=== PATIENT | female | born 1970 | race Two or more races ===

== ENCOUNTER 2017-04-09 10:16 | Day surgery (SDC) | END 2017-04-09 15:00 | disposition home or self-care (01) ==

== ENCOUNTER 2018-07-11 11:07 | Inpatient (IN) | payer OTHER ==
[~2018-07-11] VITALS: Ht 152.4 cm; Wt 79.6 kg
[~2018-07-11 11:07] MED LIST: ALBU8.5H8 INH; LORA10TA3 PO; METF-849 PO; PANT40TA3 PO; SIMV20TA2 PO
[2018-07-11] MEDS ORDERED: morphine 4 MG/ML VIAL IV STA ×2 (11:37→13:43)
[2018-07-11] MEDS ORDERED: SOD CHLORIDE 0.9% 1,000 ML IV STA ×2 (11:37→13:43)
[2018-07-11] MEDS ORDERED: ONDANSETRON 4 MG INJ IV STA ×2 (11:37→13:43)
[2018-07-11] MEDS: ACETAMINOPHEN 500 MG TAB PO STA ×2 (11:47→11:48)
[2018-07-11] MEDS ORDERED: IBUPROFEN 800 MG TAB PO ONE (12:00)
[2018-07-11] MEDS ORDERED: SOD CHLORIDE 0.9% 100 ML ONE (12:43)
[2018-07-11] MEDS ORDERED: IOHEXOL 300MG/ML 150 ML BTL ONE (12:43)
[2018-07-11] MEDS ORDERED: PANT40TA4 PO (13:40)
[2018-07-11] MEDS ORDERED: SIMV20TA PO (13:40)
[2018-07-11] MEDS ORDERED: ALBU90AE INHALATION (13:40)
[2018-07-11] MEDS ORDERED: METF500T24 PO (13:41)
[2018-07-11] MEDS ORDERED: LORA10TA3 PO (13:41)
--- NOTE | 2018-07-11 14:13 | ERD ---
ER Documentation Chief Complaint Chief Complaint C/O ABD. PAIN WITH NAUSEA, NO V/D. HX OF GALLBLADDER SURGERY IN 2018 HPI This is a 48-year-old female presents to the emergency department complaining of severe abdominal pain. The patient indicates the abdominal pain has been intermittent for the past 2 weeks. She states the pain is in the epigastric region and radiates to her back. The pain is worse when she leans forward and better when she lies supine. She states the pain is 10 out of 10 in intensity. She said no fevers or shaking or chills. She felt nauseous but has not experience any emesis. She denies any diarrhea. She has had no recent travel. She has no shortness of breath at rest or exertion. She denies any chest pain. The patient indicates that she had a cholecystectomy in October 2017. ROS All systems reviewed and are negative except as per history of present illness. Medications Home Meds Reported Medications Loratadine* (Loratadine*) 10 Mg Tablet, 10 MG PO DAILY, #30 TAB 07/11/18 Metformin Hcl* (Metformin Hcl*) 500 Mg Tablet, 500 MG PO WITH BREAKFAST, #30 TAB 07/11/18 Albuterol Sulfate (Proair Respiclick) 90 Mcg Aer.pow.ba, 2 PUFFS INHALATION Q6 PRN for SHORTNESS OF BREATH, #1 BOTTLE 07/11/18 Pantoprazole* (Pantoprazole*) 40 Mg Tablet.dr, 40 MG PO AC BREAKFAST, TAB 07/11/18 Simvastatin* (Zocor*) 20 Mg Tablet, 20 MG PO QHS, #30 TAB 07/11/18 Discontinued Reported Medications Metformin* (Glucophage*) 500 Mg Tab, 500 MG PO BID, #30 TAB 04/09/17 Simvastatin (Simvastatin) 20 Mg Tablet, 203 MG PO DAILY, #30 TAB 04/09/17 Albuterol Sulfate* (Proair HFA*) 8.5 Gm Hfa.aer.ad, 2 PUFF INH Q6 for WHEEZING, #1 INHALER 04/09/17 Pantoprazole* (Protonix*) 40 Mg Tablet.dr, 40 MG PO DAILY, TAB 04/09/17 Loratadine* (Loratadine*) 10 Mg Tablet, 10 MG PO DAILY, #30 TAB 04/09/17 Allergies Allergies: Coded Allergies: No Known Allergy (Unverified , 07/11/18) PMhx/Soc History of Surgery: Yes (appy, GALLBLADDER REMOVAL) Anesthesia Reaction: No Hx Neurological Disorder: No Hx Respiratory Disorders: Yes (asthma) Hx Cardiac Disorders: Yes (hypercholesterolemia) Hx Psychiatric Problems: No Hx Miscellaneous Medical Probl: No Hx Alcohol Use: No Hx Substance Use: No Hx Tobacco Use: No Smoking Status: Never smoker Physical Exam Vitals Vital Signs Date Temp Pulse Resp B/P (MAP) Pulse Ox O2 O2 Flow FiO2 Time Delivery Rate 07/11/18 100.7 11:48 07/11/18 79 21 121/79 99 Room Air 11:28 (93) 07/11/18 100.7 93 20 137/80 98 11:11 (99) Physical Exam Constitutional:Well-developed. Well-nourished. Patient appear to be in a significant amount discomfort secondary to pain HEENT:Normocephalic. Atraumatic.Pupils were equal round reactive to light. Moist mucous membranes.No tonsillar exudates. Neck: No nuchal rigidity. No lymphadenopathy. No posterior cervical spine tenderness or step-offs. Respiratory: Not using accessory muscles of respiration.Lungs were clear to auscultation bilaterally. No rhonchi. No rales. No wheezing. Cardiovascular: Regular rate regular rhythm.No murmurs. No rubs were appreciated.S1, S2 normal. Distal pulses are palpable 2+ bilaterally. GI: Abdomen was soft. Tenderness in the epigastric region. Non Distended. No pulsatile abdominal masses or bruits. No rebound. No guarding. Bowel sounds were present and normal. Muscle skeletal: Full range of motion of both the upper and lower extremities bilaterally.Normal muscle tone.No assymetrical calf tenderness or swelling. Skin: No petechia, no purpura. No lesions on the palms or the soles of the feet. No maculopapular rash. NEURO: Patient was alert, awake, orientated x3.No facial droop. Gait observed an d normal with no ataxia.Speech had regular rate and rhythm. No focal neurological deficits. Result Diagram: 07/11/18 1139 07/11/18 1139 Results 24 hrs Laboratory Tests Test 07/11/18 11:39 White Blood Count 10.3 10^3/ul Red Blood Count 4.65 10^6/ul Hemoglobin 12.6 g/dl Hematocrit 40.1 % Mean Corpuscular Volume 86.2 fl Mean Corpuscular Hemoglobin 27.1 pg Mean Corpuscular Hemoglobin Concent 31.4 g/dl Red Cell Distribution Width 13.8 % Platelet Count 234 10^3/UL Mean Platelet Volume 10.0 fl Immature Granulocytes % 0.200 % Neutrophils % 63.6 % Lymphocytes % 29.5 % Monocytes % 5.1 % Eosinophils % 1.4 % Basophils % 0.2 % Nucleated Red Blood Cells % 0.0 /100WBC Immature Granulocytes # 0.020 10^3/ul Neutrophils # 6.6 10^3/ul Lymphocytes # 3.1 10^3/ul Monocytes # 0.5 10^3/ul Eosinophils # 0.1 10^3/ul Basophils # 0.0 10^3/ul Nucleated Red Blood Cells # 0.0 10^3/ul Prothrombin Time 13.6 Sec Prothrombin Time Ratio 1.1 INR International Normalized Ratio 1.03 Activated Partial Thromboplast Time 32.9 Sec Urine Color YELLOW Urine Clarity CLEAR Urine pH 9.0 Urine Specific [place] 1.011 Urine Ketones NEGATIVE mg/dL Urine Nitrite NEGATIVE mg/dL Urine Bilirubin NEGATIVE mg/dL Urine Urobilinogen NEGATIVE mg/dL Urine Leukocyte Esterase 2+ [place]/ul Urine Microscopic RBC 1 /HPF Urine Microscopic WBC 13 /HPF Urine Hemoglobin NEGATIVE mg/dL Urine Glucose NEGATIVE mg/dL Urine Total Protein NEGATIVE mg/dl Sodium Level 141 mmol/L Potassium Level 4.3 mmol/L Chloride Level 106 mmol/L Carbon Dioxide Level 26 mmol/L Anion Gap 9 Blood Urea Nitrogen 6 mg/dl Creatinine 0.55 mg/dl Est Glomerular Filtrat Rate mL/min > 60 mL/min Glucose Level 129 mg/dl Calcium Level 9.7 mg/dl Total Bilirubin 0.4 mg/dl Direct Bilirubin 0.00 mg/dl Indirect Bilirubin 0.4 mg/dl Aspartate Amino Transf (AST/SGOT) 42 IU/L Alanine Aminotransferase (ALT/SGPT) 32 IU/L Alkaline Phosphatase 108 IU/L Troponin I < 0.012 ng/ml Total Protein 7.9 g/dl Albumin 4.3 g/dl Globulin 3.60 g/dl Albumin/Globulin Ratio 1.19 Triglycerides Level 186 mg/dl Cholesterol Level 143 mg/dl LDL Cholesterol, Calculated 65 mg/dl HDL Cholesterol 41 mg/dl Cholesterol/HDL Ratio 3.4 RATIO Amylase Level 112 U/L Lipase 288 U/L Current Medications Medications Dose Sig/Gus Start Time Status Last (Trade) Ordered Route PRN Stop Time Admin Dose Reason Admin Sodium 1,000 ml @ Q1H STAT 07/11/18 DC 07/11/18 Chloride 1,000 mls/hr IV 11:37 11:46 07/11/18 12:36 Morphine 4 mg ONCE STAT 07/11/18 DC 07/11/18 Sulfate IV 11:37 11:46 (morphine) 07/11/18 11:40 Ondansetron 4 mg ONCE STAT 07/11/18 DC 07/11/18 HCl (Zofran IV 11:37 11:46 Inj) 07/11/18 11:40 1,000 mg ONCE STAT 07/11/18 DC 07/11/18 Acetaminophen PO 11:37 11:48 (Tylenol 07/11/18 11:40 Tab) Ibuprofen 800 mg ONCE ONCE 07/11/18 DC 07/11/18 (Motrin) PO 12:00 12:06 07/11/18 12:07 IV Flush 10 ml STK-MED 07/11/18 DC 07/11/18 (NS 10 ml) ONCE .ROUTE 12:43 12:59 07/11/18 12:44 Sodium 100 ml @ ud STK-MED 07/11/18 DC 07/11/18 Chloride ONCE .ROUTE 12:43 13:00 07/11/18 12:44 Iohexol 150 ml STK-MED 07/11/18 DC 07/11/18 (Omnipaque ONCE .ROUTE 12:43 13:00 300mg/ ml) 07/11/18 12:44 Sodium 1,000 ml @ Q1H STAT 07/11/18 Chloride 1,000 mls/hr IV 13:43 07/11/18 14:42 Morphine 4 mg ONCE STAT 07/11/18 DC Sulfate IV 13:43 (morphine) 07/11/18 13:54 Ondansetron 4 mg ONCE STAT 07/11/18 DC HCl (Zofran IV 13:43 Inj) 07/11/18 13:54 Procedures/MDM This patient presented to the emergency department with abdominal pain and was seen and evaluated by myself. My differential diagnosis included but was not limited to abdominal aortic aneurysm, appendicitis, pancreatitis, perforated peptic ulcer, perforated viscus, Boerhaaves syndrome or visceral pain such as diverticulitis, DKA, esophagitis, hepatitis or bowel obstruction. The patient was placed on a telemetry monitor, continuous pulse oximetry, and IV access was established by nursing staff. I obtained a 12-lead EKG tracing to rule out for atypical myocardial infarction. 12 Lead EKG tracing ordered and reviewed by myself showed: Normal sinus rhythm of 75 bpm and no arrhythmia. NJ interval normal. QRS duration normal. No ST segment elevation No ST segment depression. No changes consistent with acute ischemia. The patient was in a significant amount discomfort was given intravenous Dilaudid and Zofran. CT scan of the abdomen was ordered and reviewed by myself and the radiologist. It indicated the followin. Acute pancreatitis with jadon pancreatic inflammation and fluid most notably at the pancreatic tail. Recommend clinical and laboratory correlation. 2. Multiple small fluid collections measuring up to 3 cm near the pancreatic tail, in the lesser sac and near the posterior wall of the stomach with adjacent reactive thickening of the gastric wall. These likely represent pseudocysts. 3. Hepatomegaly with steatosis. 4. Status post cholecystectomy. The patient's amylase and lipase were within normal limits but her clinical presentation was suggestive of acute pancreatitis. Therefore she will be admitted. She was instructed to remain n.p.o. She received further IV fluids and analgesic medication. The patient is capitated to admission hospital I did feel she was stable for transfer. I am currently waiting to speak to the admitting physician. Departure Diagnosis: Primary Impression: Pancreatitis Chronicity: acute Pancreatitis type: unspecified pancreatitis type Acute pancreatitis complication: no infection or necrosis Qualified Codes: K85.90 - Acute pancreatitis without necrosis or infection, unspecified Condition: GET De Jesus MD July 11, 2018 14:13
[2018-07-11] MEDS ORDERED: ONDANSETRON 4 MG INJ IV PRN (15:30)
[2018-07-11] MEDS ORDERED: ACETAMINOPHEN 325 MG TAB PO PRN (15:30)
[2018-07-11 16:00] VITALS: BP 103/56; PULSE 64; RESP 18
--- NOTE | 2018-07-11 16:17 | HP ---
Date/Time of Note Date/Time of Note DATE: 07/11/18 TIME: 16:17 Assessment/Plan VTE Prophylaxis Pharmacological prophylaxis: NA/contraindicated Pharm contraindication: surgical contra Lines/Catheters IV [facility]from [facility]): [place] Assessment/Plan Hospital Course 48-year-old female with prior history of pancreatitis status post gallbladder resection in October 2017 who presented to the emergency room with chief comp laint of abdominal pain with CT evidence of pancreatitis and possible underlying pancreatic pseudocyst, who will be admitted to inpatient setting for further treatment and evaluation. 1. Acute pancreatitis. -Etiology unclear. -Status post cholecystectomy. -Fasting lipid panel negative for any significant hypertriglyceridemia. -The patient is a teetotaler. -Obtain gastroenterology consult. -Keep n.p.o. -Continue aggressive IV fluid hydration. -Continue pain control. 2. Multiple fluid collections in the pancreatic tail. -Possible pancreatic pseudocyst. -Gastroenterology consult has been obtained. 3. Dyslipidemia. -Hold statins at this time. -Fasting lipid panel satisfactory. 4. Asthma. -No evidence of any acute exacerbation. -Continue PRN DORI. 5. Obesity. -BMI more than 34 kg/m. -Advised weight reduction. Plan: The patient will be admitted to inpatient medical surgical floor. The patient will be kept n.p.o. The patient will be started on DVT prophylaxis. The patient will remain a full code. Activities will be as tolerated. The rest of the patient's management will be based on the clinical course, inputs from consultants, and the results of diagnostic studies. Based on the patient's clinical presentation, she most probably requires at least 2 midnights' stay for further management and evaluation of her clinical presentation. The patient was seen in collaboration with Dr. Tillman. Result Diagram: 07/11/18 1139 07/11/18 1139 Results 24hrs Laboratory Tests Test 07/11/18 11:39 White Blood Count 10.3 Red Blood Count 4.65 Hemoglobin 12.6 Hematocrit 40.1 Mean Corpuscular Volume 86.2 Mean Corpuscular Hemoglobin 27.1 L Mean Corpuscular Hemoglobin Concent 31.4 L Red Cell Distribution Width 13.8 Platelet Count 234 Mean Platelet Volume 10.0 Immature Granulocytes % 0.200 Neutrophils % 63.6 Lymphocytes % 29.5 Monocytes % 5.1 Eosinophils % 1.4 Basophils % 0.2 Nucleated Red Blood Cells % 0.0 Immature Granulocytes # 0.020 Neutrophils # 6.6 Lymphocytes # 3.1 H Monocytes # 0.5 Eosinophils # 0.1 Basophils # 0.0 Nucleated Red Blood Cells # 0.0 Prothrombin Time 13.6 Prothrombin Time Ratio 1.1 INR International Normalized Ratio 1.03 Activated Partial Thromboplast Time 32.9 Urine Color YELLOW Urine Clarity CLEAR Urine pH 9.0 Urine Specific [place] 1.011 Urine Ketones NEGATIVE Urine Nitrite NEGATIVE Urine Bilirubin NEGATIVE Urine Urobilinogen NEGATIVE Urine Leukocyte Esterase 2+ H Urine Microscopic RBC 1 Urine Microscopic WBC 13 H Urine Hemoglobin NEGATIVE Urine Glucose NEGATIVE Urine Total Protein NEGATIVE Sodium Level 141 Potassium Level 4.3 Chloride Level 106 Carbon Dioxide Level 26 Anion Gap 9 Blood Urea Nitrogen 6 L Creatinine 0.55 Est Glomerular Filtrat Rate mL/min > 60 Glucose Level 129 Calcium Level 9.7 Total Bilirubin 0.4 Direct Bilirubin 0.00 Indirect Bilirubin 0.4 Aspartate Amino Transf (AST/SGOT) 42 Alanine Aminotransferase (ALT/SGPT) 32 Alkaline Phosphatase 108 Troponin I < 0.012 Total Protein 7.9 Albumin 4.3 Globulin 3.60 H Albumin/Globulin Ratio 1.19 Triglycerides Level 186 H Cholesterol Level 143 LDL Cholesterol, Calculated 65 HDL Cholesterol 41 Cholesterol/HDL Ratio 3.4 Amylase Level 112 Lipase 288 HPI/ROS Admit Date/Time Admit Date/Time Hx of Present Illness Reason for admission: Abdominal pain. Acute pancreatitis is. Consultants 1. Adrien Hendrickson MD, Gastroenterology This is a 48-year-old female with past medical history of asthma, hyperlipidemia, pancreatitis, and obesity. Patient had a cholecystectomy done in October 2017. Since then, the patient has been having nonspecific abdominal pain. However, over the past 2 weeks she has been having significant abdominal pain that was described as intermittent sharp pain; epigastric and left upper quadrant. The patient denied any emesis although she complained of nausea. The patient denied any bowel irregularities. The patient follows up with Dr. Hendrickson as outpatient and was in the process of seeing because of her history of recurrent pancreatitis. Patient was complaining of chills. The patient denied any recent travels. In the emergency room, the patient was noticed to be febrile with a temperature of 100.7 F. Her pancreatic enzymes were within normal limits. Her LFTs were within normal limits. She underwent a CT scan of the abdomen and pelvis that was showing acute pancreatitis with peripancreatic inflammation and fluid notably at the pancreatic tail with multiple small fluid collections measuring up to 3 cm near the pancreatic tail, likely representing pseudocyst. The patient was treated with IV analgesics along with IV fluids and antiemetics in the emergency room. ROS Constitutional: chills, nausea, poor po Eyes: no complaints ENT: no complaints Respiratory: no complaints Cardiovascular: no complaints Gastrointestinal: pain, nausea Genitourinary: no complaints Musculoskeletal: no complaints Skin: no complaints Neurologic: no complaints Endocrine: no complaints Lymphatic: no complaints Psychological: no complaints Immunologic: no complaints PMH/Family/Social Past Medical History 1. Asthma. 2. Hyperlipidemia. 3. Pancreatitis. 4. Obesity. 5. Migraine. Medications Current Medications Ondansetron HCl (Zofran Inj) 4 mg BRIDGE ORDER PRN IV NAUSEA/VOMITING; Start 07/11/18 at 15:30; Stop 07/12/18 at 15:29 Acetaminophen (Tylenol Tab) 650 mg ER BRIDGE PRN PO .MILD PAIN 1-3 OR TEMP; Start 07/11/18 at 15:30; Stop 07/12/18 at 15:29 Coded Allergies: No Known Allergy (Unverified , 07/11/18) Past Surgical History Past Surgical Hx: cholecystectomy Social History Lives at home with family. Alcohol Use: none Smoking Status: Never smoker Drug Use: none Exam/Review of Systems Vital Signs Vitals Vital Signs Date Temp Pulse Resp B/P (MAP) Pulse Ox O2 O2 Flow FiO2 Time Delivery Rate 07/11/18 66 22 100/61 99 Room Air 15:48 (74) 07/11/18 100.7 11:48 Exam Exam General: Obese, 48 year-old female lying in bed in no apparent distress. HEENT: Normocephalic, atraumatic. Eyes: Anicteric sclerae, conjunctivae clear. ENT: Nasal septum midline, oral mucosa is dry and. Neck supple, no JVD noticed. Respiratory: Bilaterally clear breath sounds. No use of accessory muscles of respiration. No adventitious breath sounds. Cardiovascular: S1, S2 heard. Regular rate and rhythm. Abdomen: Soft and nondistended. Epigastric and left upper quadrant tenderness. Genitourinary: Deferred. Extremities: No cyanosis, no clubbing, no edema. Peripheral pulses palpable. Neurologic: Cranial nerves II through XII grossly intact. The patient is awake, alert, and oriented. Skin: Normal skin turgor. No skin rashes. Additional Comments CT Scan of the Abdomen & Pelvis IMPRESSION: 1. Acute pancreatitis with jadon pancreatic inflammation and fluid most notably at the pancreatic tail. Recommend clinical and laboratory correlation. 2. Multiple small fluid collections measuring up to 3 cm near the pancreatic tail, in the lesser sac and near the posterior wall of the stomach with adjacent reactive thickening of the gastric wall. These likely represent pseudocysts. 3. Hepatomegaly with steatosis. 4. Status post cholecystectomy. JAYSON ENGEL NP July 11, 2018 16:17
[2018-07-11] MEDS ORDERED: ALBU18HF INHALATION (16:32)
[2018-07-11 16:56] VITALS: Ht 152.4 cm; Wt 79.6 kg
[2018-07-11] MEDS ORDERED: NACL 0.9% 3 ML SYG IV SCH (17:00)
[2018-07-11] MEDS: SOD CHLORIDE 0.9% 1,000 ML IV SCH (17:39)
[2018-07-11] MEDS: morphine 2 MG INJ IV PRN ×2 (17:40→22:16)
[2018-07-11] MEDS: ONDANSETRON 4 MG INJ IV PRN (17:40)
[2018-07-11 19:52] VITALS: BP 86/48; PULSE 60; RESP 18
[2018-07-11 20:20] VITALS: BP 104/55; PULSE 61; RESP 18
[2018-07-12] MEDS: SOD CHLORIDE 0.9% 1,000 ML IV SCH ×4 (01:09→18:12)
[2018-07-12 01:41] VITALS: BP 93/65; PULSE 63; RESP 18
[2018-07-12] MEDS: morphine 2 MG INJ IV PRN ×5 (05:26→22:56)
[2018-07-12 08:39] VITALS: BP 101/63; PULSE 70; RESP 17
--- NOTE | 2018-07-12 11:37 | CONS ---
DATE OF ADMISSION: 07/11/2018 DATE OF CONSULTATION: 07/12/2018 CHIEF COMPLAINT: Abdominal pain. HISTORY OF PRESENT ILLNESS: The patient is a 48-year-old Hindu female, is admitted to the hospital because of abdominal pain. She says for the past few days, abdominal pain has been getting worse. S he is known to have a chronic pancreatitis. 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 She h ad a cholecystectomy in the past. She also had an ERCP. The details of the ERCP reports are not vivienne ilable at this moment. She has history of diabetes. She has been nauseated. No vomiting, no GI ble eding, no fever, no diarrhea, no weight loss. SOCIAL HISTORY: She does not smoke or drink. REVIEW OF SYSTEM: Positive for diabetes. MEDICATIONS PRIOR TO THE ADMISSION INCLUDE: 1. Loratadine. 2. Ventolin. 3. Zocor. 4. Pantoprazole. PHYSICAL EXAMINATION: GENERAL: The patient is a 48-year-old Hindu female who at this time is alert. She is afebrile. Sh e is mildly obese. VITAL SIGNS: Temperature 98.3, blood pressure 101/63. CARDIOVASCULAR: Normal heart sounds. RESPIRATORY: Normal breath sounds. ABDOMEN: Showed a soft abdomen with no palpable masses, no tenderness, no distention. LABORATORY WORKUP: WBC count is 10,300, hemoglobin 12.6. AST 42, ALT 32, alkaline phosphatase is 10 8, triglycerides 186, amylase 112, lipase 288, CA 19-9 is mildly elevated at 40.6. CLINICAL IMPRESSION: The patient presenting with history of chronic pancreatitis with pseudocyst for mation of the tail of the pancreas, etiology at this time is not very clear. History of diabetes. I doubt if the hypertriglyceridemia is causing the pancreatitis. PLAN: At this time, recommend endoscopic ultrasound. She is already planned to see a gastroenterolo gist outside the hospital and recommend MRCP, but patient is refusing. Once again, COLLECTION AGENT , thank you for this consultation. Dictated By: MARGA BOWSER/NTS Conf#: [id number] DID#: [id number] CC: MICHELLE CONLEY MD;*EndCC*
[2018-07-12] MEDS: ACETAMINOPHEN 500 MG TAB PO PRN (12:11)
[2018-07-12] MEDS: CREON (24K-76K-120K) 1 CAP PO SCH ×2 (13:11→17:14)
--- NOTE | 2018-07-12 14:29 | RADRPT ---
Vent Rate: 75 bpm RR Interval: 0 msec TN Interval: 148 msec QRS Duration: 76 msec QT Interval: 398 msec QTC Interval: 444 msec P-R-T [place]: 51 - 0 - 18 degrees Normal sinus rhythm Normal ECG Electronically Signed By: [facility]
[2018-07-12 14:38] VITALS: BP 116/60; PULSE 69; RESP 17
--- NOTE | 2018-07-12 16:54 | PN ---
Date/Time of Note Date/Time of Note DATE: 07/12/18 TIME: 16:47 Assessment/Plan VTE Prophylaxis Risk score (from Ns)>0 risk: 1 SCD applied (from Ns): No SCD contraindicated: other Pharmacological prophylaxis: NA/contraindicated Pharm contraindication: low risk/ambulating Lines/Catheters [facility] Peripheral IV Assessment/Plan Hospital Course SUBJECTIVE: The patient was started on a full liquid diet. Continues to have abdominal pain, although less. Patient refused ERCP as per gastroenterology. Patient was very tearful and verbalized that "sometimes I want to cut myself on my abdomen because of pain. I have thought about suicide." OBJECTIVE: Physical Exam General: Obese, 48 year-old female lying in bed in no apparent distress. HEENT: Normocephalic, atraumatic. Eyes: Anicteric sclerae, conjunctivae clear. ENT: Nasal septum midline, oral mucosa is dry and. Neck supple, no JVD noticed. Respiratory: Bilaterally clear breath sounds. No use of accessory muscles of respiration. No adventitious breath sounds. Cardiovascular: S1, S2 heard. Regular rate and rhythm. Abdomen: Soft and nondistended. Epigastric and left upper quadrant tenderness. Genitourinary: Deferred. Extremities: No cyanosis, no clubbing, no edema. Peripheral pulses palpable. Neurologic: Cranial nerves II through XII grossly intact. The patient is awake, alert, and oriented. Skin: Normal skin turgor. No skin rashes. Labs & Vitals per chart ASSESSMENT & PLAN 48-year-old female with prior history of pancreatitis status post gallbladder resection in October 2017 who presented to the emergency room with chief com plaint of abdominal pain with CT evidence of pancreatitis and possible underlying pancreatic pseudocyst, who was admitted to inpatient setting for further treatment and evaluation. 1. Acute pancreatitis. -Etiology unclear. -Status post cholecystectomy. -Fasting lipid panel negative for any significant hypertriglyceridemia. -The patient is a teetotaler. -Gastroenterology following. -Continue aggressive IV fluid hydration. -Continue pain control. -Patient was started on Creon. -Patient has outpatient appointment for endoscopic ultrasound. 2. Multiple fluid collections in the pancreatic tail. -Possible pancreatic pseudocyst. -Gastroenterology consult has been obtained. 3. Dyslipidemia. -Hold statins at this time. -Fasting lipid panel satisfactory. 4. Asthma. -No evidence of any acute exacerbation. -Continue PRN DORI. 5. Obesity. -BMI more than 34 kg/m. -Advised weight reduction. 6. Diabetes mellitus. -Hemoglobin A1c of 7.2. -New onset versus newly diagnosed. -Monitor glycemic trends. 7. Fluids, electrolytes, and nutrition. -Full liquid diet. -Continue IV fluids. 8. DVT prophylaxis. -Bilateral SCDs. 9. Plan. -Continue pain control. -Continue IV hydration. -Await clinical improvement before discharging the patient home. -Obtain psych consult because of suicidal ideation. The patient was seen in collaboration with Dr. Tillman. Result Diagram: 07/11/18 1139 07/11/18 1139 Exam/Review of Systems Exam Vitals Vital Signs Date Temp Pulse Resp B/P (MAP) Pulse Ox O2 O2 Flow FiO2 Time Delivery Rate 07/12/18 98.3 69 17 116/60 95 14:38 (78) 07/11/18 Room Air 16:00 Intake and Output 07/11/18 07/11/18 07/12/18 1515:00 23:00 07:00 IntakeIntake Total 1500 ml BalanceBalance 1500 ml Medications Medication Current Medications Sodium Chloride 1,000 ml @ 125 mls/hr Q8H IV Last administered on 07/12/18at 09:31; Admin Dose 125 MLS/HR; Start 07/11/18 at 16:44 IV Flush (NS 3 ml) 3 ml PER PROTOCOL IV ; Start 07/11/18 at 17:00 Ondansetron HCl (Zofran Inj) 4 mg Q6H PRN IV NAUSEA/VOMITING Last administered on 07/11/18at 17:40; Admin Dose 4 MG; Start 07/11/18 at 17:00 Morphine Sulfate (morphine) 2 mg Q4H PRN IV .SEVERE PAIN 7-10 Last administered on 07/12/18at 14:09; Admin Dose 2 MG; Start 07/11/18 at 17:00 Albuterol (Proventil 0.083% (Neb)) 2.5 mg Q6H RESP THERAPY PRN HHN SHORTNESS OF BREATH; Start 07/11/18 at 17:00 Amylase/Lipase/ Protease (Creon ([id number])) 2 cap WITH MEALS PO Last a dministered on 07/12/18at 13:11; Admin Dose 2 CAP; Start 07/12/18 at 12:00 Acetaminophen (Tylenol Tab) 500 mg Q6H PRN PO MILD PAIN(1-3)OR ELEVATED TEMP Last administered on 07/12/18at 12:11; Admin Dose 500 MG; Start 07/12/18 at 12:00 JAYSON ENGEL NP July 12, 2018 16:54
[2018-07-12 20:00] VITALS: BP 125/73; PULSE 68; RESP 16
[2018-07-12] MEDS ORDERED: ALBUTEROL HFA 8 GM INHALER INH PRN (21:00)
[2018-07-12] MEDS: ATORVASTATIN 10 MG TAB PO SCH (21:04)
[2018-07-12] MEDS: ALBUTEROL 0.083% (NEB) 2.5 MG/3 ML AMP HHN PRN (21:54)
[2018-07-13 01:39] VITALS: BP 113/69; PULSE 80; RESP 16
[2018-07-13] MEDS: SOD CHLORIDE 0.9% 1,000 ML IV SCH ×3 (02:01→20:16)
[2018-07-13] MEDS: morphine 2 MG INJ IV PRN ×4 (03:14→20:19)
[2018-07-13 03:55] VITALS: BP 100/58; PULSE 66; RESP 16
[2018-07-13] MEDS: ALBUTEROL 0.083% (NEB) 2.5 MG/3 ML AMP HHN PRN (04:18)
[2018-07-13] MEDS: PANTOPRAZOLE (EC) 40 MG TAB PO SCH (05:37)
[2018-07-13] MEDS: CREON (24K-76K-120K) 1 CAP PO SCH ×3 (07:55→17:30)
[2018-07-13 08:04] VITALS: BP 112/61; PULSE 68; RESP 16
--- NOTE | 2018-07-13 09:42 | PSY ---
Date/Time of Note Date/Time of Note DATE: 07/13/18 TIME: 09:41 Psychiatric Subjective Eval Consent Pt consented to telemedicine: No Subjective Evaluation Patient location: inpatient Chief Complaint: C/O ABD. PAIN WITH NAUSEA, NO V/D. HX OF GALLBLADDER SURGERY IN 2018 History of present illness The patient is a 48-year-old female with past medical history of asthma, hyperlipidemia, pancreatitis, and obesity. [id number] evaluation, patient states she does not need a psychiatric consult edition, she denies feeling hopeless she denies feeling hopeless she denies suicidal ideation. Patient states she has a chronic pain and that her doctors have not been able to diagnose and find the cause of the pain. However she states she is hopeful and contracted for safety Past psychiatric history Denies Hospitalization: other Medical history Problems Medical Problems: (1) Pancreatitis Status: Acute Allergies: Coded Allergies: No Known Allergy (Unverified , 07/11/18) Substance Abuse Substance abuse history: No Prior substance abuse treatmen: No Social History Marital status: other DPA/Conservatorship: No Psychiatric Objective Eval Review of Systems: Review of Systems: Not Applicable Mental Status Examination: Eye Contact: Good Behavior: Cooperative Speech: Clear AFFECT: Appropriate Mood: Appropriate/Full Though Process: Linear Orientation: x4 Cognition: Alert Insight: Intact Laboratory Results Laboratory Tests Test 07/11/18 11:39 07/13/18 05:17 White Blood Count 10.3 10^3/ul 4.7 10^3/ul Red Blood Count 4.65 10^6/ul 3.81 10^6/ul Hemoglobin 12.6 g/dl 10.4 g/dl Hematocrit 40.1 % 33.1 % Mean Corpuscular Volume 86.2 fl 86.9 fl Mean Corpuscular Hemoglobin 27.1 pg 27.3 pg Mean Corpuscular Hemoglobin Concent 31.4 g/dl 31.4 g/dl Red Cell Distribution Width 13.8 % 13.9 % Platelet Count 234 10^3/UL 152 10^3/UL Mean Platelet Volume 10.0 fl 10.3 fl Immature Granulocytes % 0.200 % 0.200 % Neutrophils % 63.6 % Lymphocytes % 29.5 % Monocytes % 5.1 % Eosinophils % 1.4 % Basophils % 0.2 % Nucleated Red Blood Cells % 0.0 /100WBC 0.0 /100WBC Immature Granulocytes # 0.020 10^3/ul 0.010 10^3/ul Neutrophils # 6.6 10^3/ul Lymphocytes # 3.1 10^3/ul Monocytes # 0.5 10^3/ul Eosinophils # 0.1 10^3/ul Basophils # 0.0 10^3/ul Nucleated Red Blood Cells # 0.0 10^3/ul Prothrombin Time 13.6 Sec Prothrombin Time Ratio 1.1 INR International Normalized Ratio 1.03 Activated Partial Thromboplast Time 32.9 Sec Urine Color YELLOW Urine Clarity CLEAR Urine pH 9.0 Urine Specific [place] 1.011 Urine Ketones NEGATIVE mg/dL Urine Nitrite NEGATIVE mg/dL Urine Bilirubin NEGATIVE mg/dL Urine Urobilinogen NEGATIVE mg/dL Urine Leukocyte Esterase 2+ [place]/ul Urine Microscopic RBC 1 /HPF Urine Microscopic WBC 13 /HPF Urine Hemoglobin NEGATIVE mg/dL Urine Glucose NEGATIVE mg/dL Urine Total Protein NEGATIVE mg/dl Sodium Level 141 mmol/L 139 mmol/L Potassium Level 4.3 mmol/L 3.6 mmol/L Chloride Level 106 mmol/L 105 mmol/L Carbon Dioxide Level 26 mmol/L 27 mmol/L Anion Gap 9 7 Blood Urea Nitrogen 6 mg/dl 4 mg/dl Creatinine 0.55 mg/dl 0.50 mg/dl Est Glomerular Filtrat Rate mL/min > 60 mL/min > 60 mL/min Glucose Level 129 mg/dl 127 mg/dl Hemoglobin A1c 7.2 % Calcium Level 9.7 mg/dl 8.9 mg/dl Total Bilirubin 0.4 mg/dl 0.3 mg/dl Direct Bilirubin 0.00 mg/dl 0.00 mg/dl Indirect Bilirubin 0.4 mg/dl 0.3 mg/dl Aspartate Amino Transf (AST/SGOT) 42 IU/L 31 IU/L Alanine Aminotransferase (ALT/SGPT) 32 IU/L 34 IU/L Alkaline Phosphatase 108 IU/L 79 IU/L Troponin I < 0.012 ng/ml Total Protein 7.9 g/dl 6.5 g/dl Albumin 4.3 g/dl 3.4 g/dl Globulin 3.60 g/dl 3.10 g/dl Albumin/Globulin Ratio 1.19 1.09 Triglycerides Level 186 mg/dl Cholesterol Level 143 mg/dl LDL Cholesterol, Calculated 65 mg/dl HDL Cholesterol 41 mg/dl Cholesterol/HDL Ratio 3.4 RATIO Amylase Level 112 U/L 108 U/L Lipase 288 U/L 145 U/L CA 19-9 Antigen 40.6 U/ml Procalcitonin 0.90 ng/mL Phosphorus Level 4.5 mg/dl Magnesium Level 2.0 mg/dl Assessment and Plan Recommendation/Plan Medication Management No medication required Multiple antipsychotics: No Discharge Disposition: Other Legal Status: Voluntary (Does not meet criteria for 5150 hold) ALICIA VARELA NP July 13, 2018 09:42
--- NOTE | 2018-07-13 10:57 | CONS ---
DATE OF ADMISSION: 07/11/2018 DATE OF CONSULTATION: 07/13/2018 HISTORY OF PRESENT ILLNESS: A 48-year-old female who presented with acute pancreatitis. This is the second episode. CAT scan showed the pancreatitis and 3 cm pseudocyst in the tail of the pancreas. No etiology is determined so far. OBJECTIVE: Pain is much better. PHYSICAL EXAMINATION GENERAL: Patient is on a full liquid diet. ABDOMEN: Benign. LUNGS: Clear. EXTREMITIES: No edema. CENTRAL NERVOUS SYSTEM: Grossly within normal limits. IMPRESSION: Acute recurrent pancreatitis with pseudocyst formation. PLAN: 1. To get KUB to look for the calcification in the pancreas. 2. MRCP to look for the pancreatic divisum, but patient has declined it. 3. Continue present care. Dictated By: ESTEPHANIA RODRIGUEZ MD PJ/NTS Conf#: [id number] DID#: [id number] CC: MICHELLE CONLEY MD;*EndCC*
[2018-07-13] MEDS: ACETAMINOPHEN 500 MG TAB PO PRN (11:57)
[2018-07-13 14:49] VITALS: BP 103/52; PULSE 62; RESP 16
--- NOTE | 2018-07-13 16:04 | PN ---
Date/Time of Note Date/Time of Note DATE: 07/13/18 TIME: 15:58 Assessment/Plan VTE Prophylaxis Risk score (from Ns)>0 risk: 2 SCD applied (from Ns): No SCD contraindicated: other Pharmacological prophylaxis: NA/contraindicated Pharm contraindication: low risk/ambulating Lines/Catheters [facility]): Peripheral IV Assessment/Plan Hospital Course SUBJECTIVE: The patient was started on a full liquid diet. Abdominal pain better. Complains of a sore throat and pain in the neck. OBJECTIVE: Physical Exam General: Obese, 48 year-old female lying in bed in no apparent distress. HEENT: Normocephalic, atraumatic. Eyes: Anicteric sclerae, conjunctivae clear. ENT: Nasal septum midline, oral mucosa is dry and. Neck supple, no JVD noticed. Cervical lymphadenopathy. Respiratory: Bilaterally clear breath sounds. No use of accessory muscles of respiration. No adventitious breath sounds. Cardiovascular: S1, S2 heard. Regular rate and rhythm. Abdomen: Soft and nondistended. Epigastric and left upper quadrant tenderness. Genitourinary: Deferred. Extremities: No cyanosis, no clubbing, no edema. Peripheral pulses palpable. Neurologic: Cranial nerves II through XII grossly intact. The patient is awake, alert, and oriented. Skin: Normal skin turgor. No skin rashes. Labs & Vitals per chart ASSESSMENT & PLAN 48-year-old female with prior history of pancreatitis status post gallbladder resection in October 2017 who presented to the emergency room with chief complaint of abdominal pain with CT evidence of pancreatitis and possible underlying pancreatic pseudocyst, who was admitted to inpatient setting for further treatment and evaluation. 1. Acute pancreatitis. -Etiology unclear. -Status post cholecystectomy. -Fasting lipid panel negative for any significant hypertriglyceridemia. -The patient is a teetotaler. -Gastroenterology following. -Continue aggressive IV fluid hydration. -Continue pain control. -Patient was started on Creon. -Patient has outpatient appointment for endoscopic ultrasound. -Started on full liquids on 07/12/2018. 2. Multiple fluid collections in the pancreatic tail. -Possible pancreatic pseudocyst. -Gastroenterology consult has been obtained. 3. Dyslipidemia. -Hold statins at this time. -Fasting lipid panel satisfactory. 4. Asthma. -No evidence of any acute exacerbation. -Continue PRN DORI. 5. Obesity. -BMI more than 34 kg/m. -Advised weight reduction. 6. Diabetes mellitus. -Hemoglobin A1c of 7.2. -Monitor glycemic trends. -Low carbohydrate diet. 7. Cervical lymphadenopathy with odynophagia. -Rapid Strep. -Cervical X-ray. 8. Fluids, electrolytes, and nutrition. -Full liquid diet. -Continue IV fluids. 9. DVT prophylaxis. -Bilateral SCDs. 10. Plan. -Continue pain control. -Continue IV hydration. -Await clinical improvement before discharging the patient home. The patient was seen in collaboration with Dr. Tillman. Result Diagram: 07/13/1851607/13/18516 Results 24hrs Laboratory Tests Test 07/13/18 05:17 White Blood Count 4.7 #L Red Blood Count 3.81 L Hemoglobin 10.4 L Hematocrit 33.1 L Mean Corpuscular Volume 86.9 Mean Corpuscular Hemoglobin 27.3 L Mean Corpuscular Hemoglobin Concent 31.4 L Red Cell Distribution Width 13.9 Platelet Count 152 # Mean Platelet Volume 10.3 Immature Granulocytes % 0.200 Segmented Neutrophils % (Manual) 61 Lymphocytes % (Manual) 32 Monocytes % (Manual) 4 Eosinophils % (Manual) 3 Nucleated Red Blood Cells % 0.0 Immature Granulocytes # 0.010 Lymphocytes (Manual) 1.5 Monocytes # (Manual) 0.1 L Platelet Estimate NORMAL Sodium Level 139 Potassium Level 3.6 Chloride Level 105 Carbon Dioxide Level 27 Anion Gap 7 Blood Urea Nitrogen 4 L Creatinine 0.50 Est Glomerular Filtrat Rate mL/min > 60 Glucose Level 127 Calcium Level 8.9 Phosphorus Level 4.5 Magnesium Level 2.0 Total Bilirubin 0.3 Direct Bilirubin 0.00 Indirect Bilirubin 0.3 Aspartate Amino Transf (AST/SGOT) 31 Alanine Aminotransferase (ALT/SGPT) 34 Alkaline Phosphatase 79 Total Protein 6.5 # Albumin 3.4 Globulin 3.10 Albumin/Globulin Ratio 1.09 Amylase Level 108 Lipase 145 Exam/Review of Systems Exam Vitals Vital Signs Date Temp Pulse Resp B/P (MAP) Pulse Ox O2 O2 Flow FiO2 Time Delivery Rate 07/13/18 98.1 62 16 103/52 96 14:49 (69) 07/13/18 21 04:20 07/11/18 Room Air 16:00 Intake and Output 07/12/18 07/12/18 07/13/18 1515:00 23:00 07:00 IntakeIntake Total 500 ml 2200 ml 920 ml BalanceBalance 500 ml 2200 ml 920 ml Results Results 24hrs Laboratory Tests Test 07/13/18 05:17 White Blood Count 4.7 #L Red Blood Count 3.81 L Hemoglobin 10.4 L Hematocrit 33.1 L Mean Corpuscular Volume 86.9 Mean Corpuscular Hemoglobin 27.3 L Mean Corpuscular Hemoglobin Concent 31.4 L Red Cell Distribution Width 13.9 Platelet Count 152 # Mean Platelet Volume 10.3 Immature Granulocytes % 0.200 Segmented Neutrophils % (Manual) 61 Lymphocytes % (Manual) 32 Monocytes % (Manual) 4 Eosinophils % (Manual) 3 Nucleated Red Blood Cells % 0.0 Immature Granulocytes # 0.010 Lymphocytes (Manual) 1.5 Monocytes # (Manual) 0.1 L Platelet Estimate NORMAL Sodium Level 139 Potassium Level 3.6 Chloride Level 105 Carbon Dioxide Level 27 Anion Gap 7 Blood Urea Nitrogen 4 L Creatinine 0.50 Est Glomerular Filtrat Rate mL/min > 60 Glucose Level 127 Calcium Level 8.9 Phosphorus Level 4.5 Magnesium Level 2.0 Total Bilirubin 0.3 Direct Bilirubin 0.00 Indirect Bilirubin 0.3 Aspartate Amino Transf (AST/SGOT) 31 Alanine Aminotransferase (ALT/SGPT) 34 Alkaline Phosphatase 79 Total Protein 6.5 # Albumin 3.4 Globulin 3.10 Albumin/Globulin Ratio 1.09 Amylase Level 108 Lipase 145 Medications Medication Current Medications Sodium Chloride 1,000 ml @ 125 mls/hr Q8H IV Last administered on 07/13/18at 11:19; Admin Dose 125 MLS/HR; Start 07/11/18 at 16:44 IV Flush (NS 3 ml) 3 ml PER PROTOCOL IV ; Start 07/11/18 at 17:00 Ondansetron HCl (Zofran Inj) 4 mg Q6H PRN IV NAUSEA/VOMITING Last administered on 07/11/18at 17:40; Admin Dose 4 MG; Start 07/11/18 at 17:00 Morphine Sulfate (morphine) 2 mg Q4H PRN IV .SEVERE PAIN 7-10 Last administered on 07/13/18at 13:56; Admin Dose 2 MG; Start 07/11/18 at 17:00 Albuterol (Proventil 0.083% (Neb)) 2.5 mg Q6H RESP THERAPY PRN HHN SHORTNESS OF BREATH Last administered on 07/13/18 04:18; Admin Dose 2.5 MG; Start 07/11/18 at 17:00 Amylase/Lipase/ Protease (Creon ([id number])) 2 cap WITH MEALS PO Last administered on 07/13/18 11:51; Admin Dose 2 CAP; Start 07/12/18 at 12:00 Acetaminophen (Tylenol Tab) 500 mg Q6H PRN PO MILD PAIN(1-3)OR ELEVATED TEMP Last administered on 07/13/18at 11:57; Admin Dose 500 MG; Start 07/12/18 at 12:00 Atorvastatin Calcium (Lipitor) 10 mg HS PO Last administered on 07/12/18 21:04; Admin Dose 10 MG; Start 07/12/18 at 21:00 Pantoprazole (Protonix Tab) 40 mg DAILY@06 PO Last administered on 07/13/18at 05:37; Admin Dose 40 MG; Start 07/13/18 at 06:00 Albuterol (Ventolin Hfa) 2 puff Q4H RESP THERAPY PRN INH SHORTNESS OF BREATH; Start 07/12/18 at 21:00 JAYSON ENGEL NP July 13, 2018 16:04
[2018-07-13 19:42] VITALS: BP 124/66; PULSE 68; RESP 17
[2018-07-13] MEDS: ATORVASTATIN 10 MG TAB PO SCH (21:07)
[2018-07-14] MEDS: ACETAMINOPHEN 500 MG TAB PO PRN (00:12)
[2018-07-14 02:03] VITALS: BP 112/65; PULSE 59; RESP 18
[2018-07-14] MEDS: SOD CHLORIDE 0.9% 1,000 ML IV SCH ×3 (05:00→22:42)
[2018-07-14] MEDS: PANTOPRAZOLE (EC) 40 MG TAB PO SCH (06:17)
[2018-07-14] MEDS: morphine 2 MG INJ IV PRN ×4 (07:07→20:27)
[2018-07-14 08:13] VITALS: BP 97/52; PULSE 64; RESP 16
[2018-07-14] MEDS: CREON (24K-76K-120K) 1 CAP PO SCH ×3 (08:27→18:10)
[2018-07-14] MEDS: ONDANSETRON 4 MG INJ IV PRN ×2 (11:46→20:30)
--- NOTE | 2018-07-14 14:00 | CONS ---
Assessment/Plan Assessment/Plan Hospital Course (Demo Recall) 48 yo female Interval hx: cont to c/o abdominal pain and some nausea. Lipase and amylase wn l. Tolerating soft diet. KUB is unremarkable. Pt declines MRCP 1. Acute recurrent pancreatitis with pseudocyst formation. 2. Elevated CA 19-9 3. Anemia -monitor carefully, no signs of overt GI bleeding 4. Hepatomegaly 5. UTI with mixed gram positive organisms PLAN: Continue with diet as tolerated, if pain persistent revert to clear liquid diet PRN anti emetics and pain management Monitor lipase and amylase Pt examined and plan of care discussed with Dr. Mock Consultation Date/Type/Reason Admit Date/Time July 11, 2018 at 15:15 Initial Consult Date Date/Time of Note DATE: 07/14/18 TIME: 13:54 Exam/Review of Systems Exam Vitals Vital Signs Date Temp Pulse Resp B/P (MAP) Pulse Ox O2 O2 Flow FiO2 Time Delivery Rate 07/14/18 97.6 64 16 97/52 (67) 100 08:13 07/13/18 21 04:20 07/11/18 Room Air 16:00 Intake and Output 07/13/18 07/13/18 07/14/18 1515:00 23:00 07:00 IntakeIntake Total 920 ml 2300 ml 1000 ml BalanceBalance 920 ml 2300 ml 1000 ml Results Result Diagram: 07/14/18 0507 07/14/18 0507 Results 24hrs Laboratory Tests Test 07/14/18 05:07 White Blood Count 5.1 Red Blood Count 3.89 L Hemoglobin 10.7 L Hematocrit 33.6 L Mean Corpuscular Volume 86.4 Mean Corpuscular Hemoglobin 27.5 L Mean Corpuscular Hemoglobin Concent 31.8 L Red Cell Distribution Width 13.6 Platelet Count 185 # Mean Platelet Volume 10.2 Immature Granulocytes % 0.200 Neutrophils % 41.3 Lymphocytes % 50.9 Monocytes % 4.7 Eosinophils % 2.5 Basophils % 0.4 Nucleated Red Blood Cells % 0.0 Immature Granulocytes # 0.010 Neutrophils # 2.1 Lymphocytes # 2.6 Monocytes # 0.2 L Eosinophils # 0.1 Basophils # 0.0 Nucleated Red Blood Cells # 0.0 Sodium Level 142 Potassium Level 3.8 Chloride Level 107 Carbon Dioxide Level 27 Anion Gap 8 Blood Urea Nitrogen 4 L Creatinine 0.50 Est Glomerular Filtrat Rate mL/min > 60 Glucose Level 110 Calcium Level 8.9 Phosphorus Level 4.9 Magnesium Level 2.0 Total Bilirubin 0.5 Direct Bilirubin 0.00 Indirect Bilirubin 0.5 Aspartate Amino Transf (AST/SGOT) 44 Alanine Aminotransferase (ALT/SGPT) 33 Alkaline Phosphatase 96 Total Protein 7.0 Albumin 3.6 Globulin 3.40 H Albumin/Globulin Ratio 1.05 Medications Medication Current Medications Sodium Chloride 1,000 ml @ 125 mls/hr Q8H IV Last administered on 07/14/18 05:00; Admin Dose 125 MLS/HR; Start 07/11/18 at 16:44 IV Flush (NS 3 ml) 3 ml PER PROTOCOL IV ; Start 07/11/18 at 17:00 Ondansetron HCl (Zofran Inj) 4 mg Q6H PRN IV NAUSEA/VOMITING Last administered on 07/14/18 11:46; Admin Dose 4 MG; Start 07/11/18 at 17:00 Morphine Sulfate (morphine) 2 mg Q4H PRN IV .SEVERE PAIN 7-10 Last administered on 07/14/18 11:36; Admin Dose 2 MG; Start 07/11/18 at 17:00 Albuterol (Proventil 0.083% (Neb)) 2.5 mg Q6H RESP THERAPY PRN HHN SHORTNESS OF BREATH Last administered on 07/13/18 04:18; Admin Dose 2.5 MG; Start 07/11/18 a t 17:00 Amylase/Lipase/ Protease (Creon ([id number])) 2 cap WITH MEALS PO Last administered on 07/14/18 11:36; Admin Dose 2 CAP; Start 07/12/18 at 12:00 Acetaminophen (Tylenol Tab) 500 mg Q6H PRN PO MILD PAIN(1-3)OR ELEVATED TEMP Last administered on 07/14/18 00:12; Admin Dose 500 MG; Start 07/12/18 at 12:00 Atorvastatin Calcium (Lipitor) 10 mg HS PO Last administered on 07/13/18 21:07; Admin Dose 10 MG; Start 07/12/18 at 21:00 Pantoprazole (Protonix Tab) 40 mg DAILY@06 PO Last administered on 07/14/18 06:17; Admin Dose 40 MG; Start 07/13/18 at 06:00 Albuterol (Ventolin Hfa) 2 puff Q4H RESP THERAPY PRN INH SHORTNESS OF BREATH; Start 07/12/18 at 21:00 SANDRA KUO July 14, 2018 14:00
--- NOTE | 2018-07-14 14:47 | PN ---
Date/Time of Note Date/Time of Note DATE: 07/14/18 TIME: 14:44 Assessment/Plan VTE Prophylaxis Risk score (from Ns)>0 risk: 2 SCD applied (from Ns): No SCD contraindicated: low risk/ambulating Pharmacological prophylaxis: NA/contraindicated Pharm contraindication: low risk/ambulating Lines/Catheters IV [facility]ter Type (from [facility]): Peripheral IV Assessment/Plan Hospital Course SUBJECTIVE: The patient was started on a full liquid diet. Abdominal pain better. OBJECTIVE: Physical Exam General: Obese, 48 year-old female lying in bed in no apparent distress. HEENT: Normocephalic, atraumatic. Eyes: Anicteric sclerae, conjunctivae clear. ENT: Nasal septum midline, oral mucosa is dry and. Neck supple, no JVD noticed. Cervical lymphadenopathy. Respiratory: Bilaterally clear breath sounds. No use of accessory muscles of respiration. No adventitious breath sounds. Cardiovascular: S1, S2 heard. Regular rate and rhythm. Abdomen: Soft and nondistended. Minimal epigastric tenderness. Genitourinary: Deferred. Extremities: No cyanosis, no clubbing, no edema. Peripheral pulses palpable. Neurologic: Cranial nerves II through XII grossly intact. The patient is awake, alert, and oriented. Skin: Normal skin turgor. No skin rashes. Labs & Vitals per chart ASSESSMENT & PLAN 48-year-old female with prior history of pancreatitis status post gallbladder resection in October 2017 who presented to the emergency room with chief complaint of abdominal pain with CT evidence of pancreatitis and possible underlying pancreatic pseudocyst, who was admitted to inpatient setting for further treatment and evaluation. 1. Chronic pancreatitis. -Etiology unclear. -Status post cholecystectomy. -Fasting lipid panel negative for any significant hypertriglyceridemia. -The patient is a teetotaler. -Gastroenterology following. -Continue aggressive IV fluid hydration. -Continue pain control. -Patient was started on Creon. -Patient has outpatient appointment for endoscopic ultrasound. -Started on full liquids on 07/12/2018. 2. Multiple fluid collections in the pancreatic tail. -Possible pancreatic pseudocyst. -Gastroenterology following. 3. Dyslipidemia. -Hold statins at this time. -Fasting lipid panel satisfactory. 4. Asthma. -No evidence of any acute exacerbation. -Continue PRN DORI. 5. Obesity. -BMI more than 34 kg/m. -Advised weight reduction. 6. Diabetes mellitus. -Hemoglobin A1c of 7.2. -Monitor glycemic trends. -Low carbohydrate diet. 7. Cervical lymphadenopathy with odynophagia. -Rapid Strep negative. -Cervical X-ray negative. 8. Fluids, electrolytes, and nutrition. -Advance to soft diet. -Continue IV fluids. 9. DVT prophylaxis. -Bilateral SCDs. 10. Plan. -Continue pain control. -Advance diet. -Await clinical improvement before discharging the patient home. The patient was seen in collaboration with Dr. Tillman. Result Diagram: 07/14/18 0507 07/14/18 0507 Results 24hrs Laboratory Tests Test 07/14/18 05:07 White Blood Count 5.1 Red Blood Count 3.89 L Hemoglobin 10.7 L Hematocrit 33.6 L Mean Corpuscular Volume 86.4 Mean Corpuscular Hemoglobin 27.5 L Mean Corpuscular Hemoglobin Concent 31.8 L Red Cell Distribution Width 13.6 Platelet Count 185 # Mean Platelet Volume 10.2 Immature Granulocytes % 0.200 Neutrophils % 41.3 Lymphocytes % 50.9 Monocytes % 4.7 Eosinophils % 2.5 Basophils % 0.4 Nucleated Red Blood Cells % 0.0 Immature Granulocytes # 0.010 Neutrophils # 2.1 Lymphocytes # 2.6 Monocytes # 0.2 L Eosinophils # 0.1 Basophils # 0.0 Nucleated Red Blood Cells # 0.0 Sodium Level 142 Potassium Level 3.8 Chloride Level 107 Carbon Dioxide Level 27 Anion Gap 8 Blood Urea Nitrogen 4 L Creatinine 0.50 Est Glomerular Filtrat Rate mL/min > 60 Glucose Level 110 Calcium Level 8.9 Phosphorus Level 4.9 Magnesium Level 2.0 Total Bilirubin 0.5 Direct Bilirubin 0.00 Indirect Bilirubin 0.5 Aspartate Amino Transf (AST/SGOT) 44 Alanine Aminotransferase (ALT/SGPT) 33 Alkaline Phosphatase 96 Total Protein 7.0 Albumin 3.6 Globulin 3.40 H Albumin/Globulin Ratio 1.05 Exam/Review of Systems Exam Vitals Vital Signs Date Temp Pulse Resp B/P (MAP) Pulse Ox O2 O2 Flow FiO2 Time Delivery Rate 07/14/18 97.6 64 16 97/52 (67) 100 08:13 07/13/18 21 04:20 07/11/18 Room Air 16:00 Intake and Output 07/13/18 07/13/18 07/14/18 1515:00 23:00 07:00 IntakeIntake Total 920 ml 2300 ml 1000 ml BalanceBalance 920 ml 2300 ml 1000 ml Results Results 24hrs Laboratory Tests Test 07/14/18 05:07 White Blood Count 5.1 Red Blood Count 3.89 L Hemoglobin 10.7 L Hematocrit 33.6 L Mean Corpuscular Volume 86.4 Mean Corpuscular Hemoglobin 27.5 L Mean Corpuscular Hemoglobin Concent 31.8 L Red Cell Distribution Width 13.6 Platelet Count 185 # Mean Platelet Volume 10.2 Immature Granulocytes % 0.200 Neutrophils % 41.3 Lymphocytes % 50.9 Monocytes % 4.7 Eosinophils % 2.5 Basophils % 0.4 Nucleated Red Blood Cells % 0.0 Immature Granulocytes # 0.010 Neutrophils # 2.1 Lymphocytes # 2.6 Monocytes # 0.2 L Eosinophils # 0.1 Basophils # 0.0 Nucleated Red Blood Cells # 0.0 Sodium Level 142 Potassium Level 3.8 Chloride Level 107 Carbon Dioxide Level 27 Anion Gap 8 Blood Urea Nitrogen 4 L Creatinine 0.50 Est Glomerular Filtrat Rate mL/min > 60 Glucose Level 110 Calcium Level 8.9 Phosphorus Level 4.9 Magnesium Level 2.0 Total Bilirubin 0.5 Direct Bilirubin 0.00 Indirect Bilirubin 0.5 Aspartate Amino Transf (AST/SGOT) 44 Alanine Aminotransferase (ALT/SGPT) 33 Alkaline Phosphatase 96 Total Protein 7.0 Albumin 3.6 Globulin 3.40 H Albumin/Globulin Ratio 1.05 Medications Medication Current Medications Sodium Chloride 1,000 ml @ 125 mls/hr Q8H IV Last administered on 07/14/18at 14:20; Admin Dose 125 MLS/HR; Start 07/11/18 at 16:44 IV Flush (NS 3 ml) 3 ml PER PROTOCOL IV ; Start 07/11/18 at 17:00 Ondansetron HCl (Zofran Inj) 4 mg Q6H PRN IV NAUSEA/VOMITING Last administered on 07/14/18at 11:46; Admin Dose 4 MG; Start 07/11/18 at 17:00 Morphine Sulfate (morphine) 2 mg Q4H PRN IV .SEVERE PAIN 7-10 Last administered on 07/14/18at 11:36; Admin Dose 2 MG; Start 07/11/18 at 17:00 Albuterol (Proventil 0.083% (Neb)) 2.5 mg Q6H RESP THERAPY PRN HHN SHORTNESS OF BREATH Last administered on 07/13/18 04:18; Admin Dose 2.5 MG; Start 07/11/18 at 17:00 Amylase/Lipase/ Protease (Creon ([id number])) 2 cap WITH MEALS PO Last administered on 07/14/18at 11:36; Admin Dose 2 CAP; Start 07/12/18 at 12:00 Acetaminophen (Tylenol Tab) 500 mg Q6H PRN PO MILD PAIN(1-3)OR ELEVATED TEMP Last administered on 07/14/18at 00:12; Admin Dose 500 MG; Start 07/12/18 at 12:00 Atorvastatin Calcium (Lipitor) 10 mg HS PO Last administered on 07/13/18at 21:07; Admin Dose 10 MG; Start 07/12/18 at 21:00 Pantoprazole (Protonix Tab) 40 mg DAILY@06 PO Last administered on 07/14/18at 06:17; Admin Dose 40 MG; Start 07/13/18 at 06:00 Albuterol (Ventolin Hfa) 2 puff Q4H RESP THERAPY PRN INH SHORTNESS OF BREATH; Start 07/12/18 at 21:00 JAYSON ENGEL NP July 14, 2018 14:47
[2018-07-14 14:48] VITALS: BP 114/65; PULSE 71; RESP 16
[2018-07-14] MEDS: LORATADINE 10 MG TAB PO SCH (15:23)
[2018-07-14 20:18] VITALS: BP 112/67; PULSE 77; RESP 19
[2018-07-14] MEDS: ATORVASTATIN 10 MG TAB PO SCH (20:27)
[2018-07-15] MEDS: morphine 2 MG INJ IV PRN ×5 (00:27→18:11)
[2018-07-15 02:00] VITALS: BP 104/57; PULSE 64; RESP 19
[2018-07-15] MEDS: ONDANSETRON 4 MG INJ IV PRN ×4 (03:31→22:34)
[2018-07-15] MEDS: PANTOPRAZOLE (EC) 40 MG TAB PO SCH (06:00)
[2018-07-15] MEDS: SOD CHLORIDE 0.9% 1,000 ML IV SCH ×2 (06:46→15:10)
[2018-07-15 08:00] VITALS: BP 115/59; PULSE 58; RESP 17
[2018-07-15] MEDS: CREON (24K-76K-120K) 1 CAP PO SCH ×3 (08:42→18:14)
[2018-07-15] MEDS: LORATADINE 10 MG TAB PO SCH (08:42)
[2018-07-15 14:00] VITALS: BP 118/55; PULSE 58; RESP 17
--- NOTE | 2018-07-15 16:24 | PN ---
Date/Time of Note Date/Time of Note DATE: 07/15/18 TIME: 16:21 Assessment/Plan VTE Prophylaxis [place] [facility] [place] risk: 2 SCD applied (from [facility] [place] No SCD contraindicated: low risk/ambulating Pharmacological prophylaxis: NA/contraindicated Pharm contraindication: surgical contra Lines/Catheters IV Catheter Type (from [facility]): Peripheral IV Assessment/Plan Hospital Course A/P 1. Recurrent Pancreatitis; stable. mrcp/ eus possibly needed 2. Chr pancreatitis; +/- pseudocyst. on creon 3. S/p lap chol 4. Asthma 5. DL 6. Anemia 7. Dm 8. Metabolic Syndrome S: tolerating soft diet; mild/ mod pain O: vss PE no pallor/ icterus/ adenopathy reg s1s2 no mrg ctab bs+ nt nd; no r r g; no ecchymosis no edema Result Diagram: 07/15/182 07/15/18 0432 Results 24hrs Laboratory Tests Test 07/15/18 04:32 White Blood Count 5.8 Red Blood Count 3.91 L Hemoglobin 10.7 L Hematocrit 33.9 L Mean Corpuscular Volume 86.7 Mean Corpuscular Hemoglobin 27.4 L Mean Corpuscular Hemoglobin Concent 31.6 L Red Cell Distribution Width 13.8 Platelet Count 191 Mean Platelet Volume 10.3 Immature Granulocytes % 0.200 Neutrophils % 44.2 Lymphocytes % 47.6 Monocytes % 4.5 Eosinophils % 3.0 Basophils % 0.5 Nucleated Red Blood Cells % 0.0 Immature Granulocytes # 0.010 Neutrophils # 2.6 Lymphocytes # 2.7 Monocytes # 0.3 Eosinophils # 0.2 Basophils # 0.0 Nucleated Red Blood Cells # 0.0 Sodium Level 141 Potassium Level 3.9 Chloride Level 106 Carbon Dioxide Level 28 Anion Gap 7 Blood Urea Nitrogen 8 Creatinine 0.57 Est Glomerular Filtrat Rate mL/min > 60 Glucose Level 121 Calcium Level 9.0 Phosphorus Level 5.0 H Magnesium Level 1.9 Total Bilirubin 0.4 Direct Bilirubin 0.00 Indirect Bilirubin 0.4 Aspartate Amino Transf (AST/SGOT) 41 Alanine Aminotransferase (ALT/SGPT) 34 Alkaline Phosphatase 76 Total Protein 6.5 Albumin 3.4 Globulin 3.10 Albumin/Globulin Ratio 1.09 Amylase Level 85 Lipase 127 Exam/Review of Systems Exam Vitals Vital Signs Date Temp Pulse Resp B/P (MAP) Pulse Ox O2 O2 Flow FiO2 Time Delivery Rate 07/15/18 97.9 58 17 115/59 97 Room Air 08:00 (77) 07/13/18 04:20 Intake and Output 07/14/18 07/14/18 07/15/18 1515:00 23:00 07:00 IntakeIntake Total 1000 ml 2000 ml 1000 ml BalanceBalance 1000 ml 2000 ml 1000 ml Results Results 24hrs Laboratory Tests Test 07/15/18 04:32 White Blood Count 5.8 Red Blood Count 3.91 L Hemoglobin 10.7 L Hematocrit 33.9 L Mean Corpuscular Volume 86.7 Mean Corpuscular Hemoglobin 27.4 L Mean Corpuscular Hemoglobin Concent 31.6 L Red Cell Distribution Width 13.8 Platelet Count 191 Mean Platelet Volume 10.3 Immature Granulocytes % 0.200 Neutrophils % 44.2 Lymphocytes % 47.6 Monocytes % 4.5 Eosinophils % 3.0 Basophils % 0.5 Nucleated Red Blood Cells % 0.0 Immature Granulocytes # 0.010 Neutrophils # 2.6 Lymphocytes # 2.7 Monocytes # 0.3 Eosinophils # 0.2 Basophils # 0.0 Nucleated Red Blood Cells # 0.0 Sodium Level 141 Potassium Level 3.9 Chloride Level 106 Carbon Dioxide Level 28 Anion Gap 7 Blood Urea Nitrogen 8 Creatinine 0.57 Est Glomerular Filtrat Rate mL/min > 60 Glucose Level 121 Calcium Level 9.0 Phosphorus Level 5.0 H Magnesium Level 1.9 Total Bilirubin 0.4 Direct Bilirubin 0.00 Indirect Bilirubin 0.4 Aspartate Amino Transf (AST/SGOT) 41 Alanine Aminotransferase (ALT/SGPT) 34 Alkaline Phosphatase 76 Total Protein 6.5 Albumin 3.4 Globulin 3.10 Albumin/Globulin Ratio 1.09 Amylase Level 85 Lipase 127 Medications Medication Current Medications Sodium Chloride 1,000 ml @ 125 mls/hr Q8H IV Last administered on 07/15/18at 15:10; Admin Dose 125 MLS/HR; Start 07/11/18 at 16:44 IV Flush (NS 3 ml) 3 ml PER PROTOCOL IV ; Start 07/11/18 at 17:00 Ondansetron HCl (Zofran Inj) 4 mg Q6H PRN IV NAUSEA/VOMITING Last administered on 07/15/18at 16:11; Admin Dose 4 MG; Start 07/11/18 at 17:00 Morphine Sulfate (morphine) 2 mg Q4H PRN IV .SEVERE PAIN 7-10 Last administered on 07/15/18 13:12; Admin Dose 2 MG; Start 07/11/18 at 17:00 Albuterol (Proventil 0.083% (Neb)) 2.5 mg Q6H RESP THERAPY PRN HHN SHORTNESS OF BREATH Last administered on 07/13/18 04:18; Admin Dose 2.5 MG; Start 07/11/18 at 17:00 Amylase/Lipase/ Protease (Creon ([id number])) 2 cap WITH MEALS PO Last administered on 07/15/18 12:09; Admin Dose 2 CAP; Start 07/12/18 at 12:00 Acetaminophen (Tylenol Tab) 500 mg Q6H PRN PO MILD PAIN(1-3)OR ELEVATED TEMP Last administered on 07/14/18 00:12; Admin Dose 500 MG; Start 07/12/18 at 12:00 Atorvastatin Calcium (Lipitor) 10 mg HS PO Last administered on 07/14/18 20:27; Admin Dose 10 MG; Start 07/12/18 at 21:00 Pantoprazole (Protonix Tab) 40 mg DAILY@06 PO Last administered on 07/15/18 06:00; Admin Dose 40 MG; Start 07/13/18 at 06:00 Albuterol (Ventolin Hfa) 2 puff Q4H RESP THERAPY PRN INH SHORTNESS OF BREATH; Start 07/12/18 at 21:00 Loratadine (Claritin) 10 mg DAILY PO Last administered on 07/15/18at 08:42; Admin Dose 10 MG; Start 07/14/18 at 15:00 SONI NASSAR MD July 15, 2018 16:24
[2018-07-15 20:00] VITALS: BP 110/57; PULSE 66; RESP 18
[2018-07-15] MEDS: ATORVASTATIN 10 MG TAB PO SCH (21:00)
[2018-07-15] MEDS ORDERED: KETOROLAC 30 MG INJ IV STA (22:06)
[2018-07-16] VITALS (10 sets, daily range): BP systolic 100–137; BP diastolic 56–84; PULSE 64–92; RESP 16–27
[2018-07-16] MEDS: SOD CHLORIDE 0.9% 1,000 ML IV SCH ×2 (03:18→18:36)
[2018-07-16] MEDS: PANTOPRAZOLE (EC) 40 MG TAB PO SCH (05:44)
--- NOTE | 2018-07-16 06:30 | CONS ---
DATE OF ADMISSION: 07/11/2018 DATE OF CONSULTATION: 07/15/2018 HISTORY OF PRESENT ILLNESS: The patient is admitted with history of abdominal pain which has been go ing on for the past several days. In spite of being in the hospital for several days, she continues to have abdominal pain with nausea but no vomiting, no fever, no jaundice, no diarrhea. CAT scan of the abdomen shows evidence of acute pancreatitis with pseudocyst formation in the tail of the pancrea s. PHYSICAL EXAMINATION: GENERAL: She is alert. VITAL SIGNS: She is afebrile. Blood pressure is 110/60. CARDIOVASCULAR: Normal heart sounds. RESPIRATORY: Normal breath sounds. ABDOMEN: Shows soft abdomen with no palpable masses, no tenderness, no distention at this time. LABORATORY WORKUP: WBC count is 5800, hemoglobin is 10.7. Potassium 3.9. AST is 41, ALT is 34. Li pase is 127, amylase is 85. CLINICAL IMPRESSION: Although she seems to have evidence of pancreatitis on the CAT scan, amylase an d lipase have been consistently normal, so it is at this time bothersome but the reason for abdominal pain is quite possible it could be related to peptic ulcer disease or gastritis. Hence at this time , I have recommended upper endoscopy for which will be done tomorrow. Once again, doctor, thank you for this consultation. Dictated By: MARGA HERRERA MD NC/NTS Conf#: [id number] DID#: [id number] CC: SONI NASSAR MD; MICHELLE CONLEY MD;*EndCC*
[2018-07-16] MEDS: LORATADINE 10 MG TAB PO SCH (09:00)
[2018-07-16] MEDS: CREON (24K-76K-120K) 1 CAP PO SCH ×3 (09:34→18:36)
--- NOTE | 2018-07-16 11:50 | PN ---
Date/Time of Note Date/Time of Note DATE: 07/16/18 TIME: 11:46 Assessment/Plan VTE [place] [facility] [place]: 2 [place] [facility] [place] contraindicated: low risk/ambulating Pharmacological prophylaxis: NA/contraindicated Pharm contraindication: surgical contra Lines/Catheters [facility] Type (from [facility] Peripheral IV Assessment/Plan Hospital Course A/P 1. Recurrent Pancreatitis? stable. EGD today. mrcp/ eus possibly needed too. r/o PUD. Ca 19-9 ~50 2. Chr pancreatitis; +/- pseudocyst? on creon 3. S/p lap vance 4. Asthma 5. DL 6. Anemia. test negative 7. Dm 8. Metabolic Syndrome S: 07/15 tolerating soft diet; mild/ mod pain 07/16 moderate pain. No nausea vomiting fever or dyspnea O: vss PE no pallor/ icterus reg s1s2 no mrg ctab bs+ mild tender; nd; no r r g; no ecchymosis no edema Result Diagram: 07/16/18 0546 07/16/18 0548 Results 24hrs Laboratory Tests Test 07/15/18 20:20 07/16/18 05:46 07/16/18 05:48 Urine Test NEGATIVE White Blood Count 6.3 Red Blood Count 4.13 L Hemoglobin 11.3 L Hematocrit 35.4 L Mean Corpuscular Volume 85.7 Mean Corpuscular Hemoglobin 27.4 L Mean Corpuscular Hemoglobin Concent 31.9 L Red Cell Distribution Width 13.8 Platelet Count 192 Mean Platelet Volume 9.6 Immature Granulocytes % 0.300 Neutrophils % 50.1 Lymphocytes % 41.1 Monocytes % 5.2 Eosinophils % 3.0 Basophils % 0.3 Nucleated Red Blood Cells % 0.0 Immature Granulocytes # 0.020 Neutrophils # 3.2 Lymphocytes # 2.6 Monocytes # 0.3 Eosinophils # 0.2 Basophils # 0.0 Nucleated Red Blood Cells # 0.0 Prothrombin Time 14.1 Prothrombin Time Ratio 1.1 INR International Normalized Ratio 1.08 Sodium Level 142 Potassium Level 4.0 Chloride Level 107 Carbon Dioxide Level 28 Anion Gap 7 Blood Urea Nitrogen 10 Creatinine 0.58 Est Glomerular Filtrat Rate mL/min > 60 Glucose Level 108 Calcium Level 9.0 Total Bilirubin 0.3 Direct Bilirubin 0.00 Indirect Bilirubin 0.3 Aspartate Amino Transf (AST/SGOT) 46 Alanine Aminotransferase (ALT/SGPT) 37 Alkaline Phosphatase 92 Lactate Dehydrogenase 436 Total Protein 7.2 Albumin 3.6 Globulin 3.60 H Albumin/Globulin Ratio 1.00 Lipase 179 Exam/Review of Systems Exam Vitals Vital Signs Date Temp Pulse Resp B/P (MAP) Pulse Ox O2 O2 Flow FiO2 Time Delivery Rate 07/16/18 98.4 64 18 116/61 98 Room Air 08:00 (79) 07/13/18 04:20 Intake and Output 07/15/18 07/15/18 07/16/18 1515:00 23:00 07:00 IntakeIntake Total 2050 ml 1800 ml BalanceBalance 2050 ml 1800 ml Results Results 24hrs Laboratory Tests Test 07/15/18 20:20 07/16/18 05:46 07/16/18 05:48 Urine Test NEGATIVE White Blood Count 6.3 Red Blood Count 4.13 L Hemoglobin 11.3 L Hematocrit 35.4 L Mean Corpuscular Volume 85.7 Mean Corpuscular Hemoglobin 27.4 L Mean Corpuscular Hemoglobin Concent 31.9 L Red Cell Distribution Width 13.8 Platelet Count 192 Mean Platelet Volume 9.6 Immature Granulocytes % 0.300 Neutrophils % 50.1 Lymphocytes % 41.1 Monocytes % 5.2 Eosinophils % 3.0 Basophils % 0.3 Nucleated Red Blood Cells % 0.0 Immature Granulocytes # 0.020 Neutrophils # 3.2 Lymphocytes # 2.6 Monocytes # 0.3 Eosinophils # 0.2 Basophils # 0.0 Nucleated Red Blood Cells # 0.0 Prothrombin Time 14.1 Prothrombin Time Ratio 1.1 INR International Normalized Ratio 1.08 Sodium Level 142 Potassium Level 4.0 Chloride Level 107 Carbon Dioxide Level 28 Anion Gap 7 Blood Urea Nitrogen 10 Creatinine 0.58 Est Glomerular Filtrat Rate mL/min > 60 Glucose Level 108 Calcium Level 9.0 Total Bilirubin 0.3 Direct Bilirubin 0.00 Indirect Bilirubin 0.3 Aspartate Amino Transf (AST/SGOT) 46 Alanine Aminotransferase (ALT/SGPT) 37 Alkaline Phosphatase 92 Lactate Dehydrogenase 436 Total Protein 7.2 Albumin 3.6 Globulin 3.60 H Albumin/Globulin Ratio 1.00 Lipase 179 Medications Medication Current Medications Sodium Chloride 1,000 ml @ 75 mls/hr [id number] IV Last administered on 07/16/18at 03:18; Admin Dose 75 MLS/HR; Start 07/11/18 at 16:44 IV Flush (NS 3 ml) 3 ml PER PROTOCOL IV ; Start 07/11/18 at 17:00 Ondansetron HCl (Zofran Inj) 4 mg Q6H PRN IV NAUSEA/VOMITING Last administered on 07/15/18 22:34; Admin Dose 4 MG; Start 07/11/18 at 17:00 Morphine Sulfate (morphine) 2 mg Q4H PRN IV .SEVERE PAIN 7-10 Last administered on 07/15/18 18:11; Admin Dose 2 MG; Start 07/11/18 at 17:00 Albuterol (Proventil 0.083% (Neb)) 2.5 mg Q6H RESP THERAPY PRN HHN SHORTNESS OF BREATH Last administered on 07/13/18 04:18; Admin Dose 2.5 MG; Start 07/11/18 at 17:00 Amylase/Lipase/ Protease (Creon ([id number])) 2 cap WITH MEALS PO Last administered on 07/16/18 09:34; Admin Dose 2 CAP; Start 07/12/18 at 12:00 Acetaminophen (Tylenol Tab) 500 mg Q6H PRN PO MILD PAIN(1-3)OR ELEVATED TEMP Last administered on 07/14/18 00:12; Admin Dose 500 MG; Start 07/12/18 at 12:00 Atorvastatin Calcium (Lipitor) 10 mg HS PO Last administered on 07/15/18 21:00; Admin Dose 10 MG; Start 07/12/18 at 21:00 Pantoprazole (Protonix Tab) 40 mg DAILY@06 PO Last administered on 07/15/18 06:00; Admin Dose 40 MG; Start 07/13/18 at 06:00 Albuterol (Ventolin Hfa) 2 puff Q4H RESP THERAPY PRN INH SHORTNESS OF BREATH; Start 07/12/18 at 21:00 Loratadine (Claritin) 10 mg DAILY PO Last administered on 07/15/18 08:42; Admin Dose 10 MG; Start 07/14/18 at 15:00 SONI NASSAR MD July 16, 2018 11:50
[2018-07-16] MEDS ORDERED: LIDOCAINE 2% (SDV) 5 ML INJ ONE (14:00)
[2018-07-16] MEDS ORDERED: PROPOFOL 40 ML ONE (14:00)
--- NOTE | 2018-07-16 14:35 | PREAC ---
Date/Time of Note Date/Time of Note DATE: 07/16/18 TIME: 14:33 Anesthesia Eval and Record Evaluation Time Pre-Procedure Interview DATE: 07/16/18 TIME: 14:33 Age 48 Sex female NPO: 8 hrs Preoperative diagnosis Abdominal pain Planned procedure EGD Past Medical History Past Medical History: Includes Cardio: HTN, Dyslipidemia Endo: Diabetes Pulm: Asthma GI: Morbid obesity Surgery & Anesthesia Issues No known issue Meds Anticoagulation: Yes Beta Eleonora within 24 hr: Yes Reported Medications Albuterol Sulfate* (Ventolin HFA*) 18 Gm Hfa.aer.ad, 2 PUFF INHALATION Q4H, #1 INHALER 07/11/18 Loratadine* (Loratadine*) 10 Mg Tablet, 10 MG PO DAILY, #30 TAB 07/11/18 Pantoprazole* (Pantoprazole*) 40 Mg Tablet.dr, 40 MG PO AC BREAKFAST, TAB 07/11/18 Simvastatin* (Zocor*) 20 Mg Tablet, 20 MG PO QHS, #30 TAB 07/11/18 Discontinued Reported Medications Metformin Hcl* (Metformin Hcl*) 500 Mg Tablet, 500 MG PO WITH BREAKFAST, #30 TAB 07/11/18 Metformin* (Glucophage*) 500 Mg Tab, 500 MG PO BID, #30 TAB 04/09/17 Simvastatin (Simvastatin) 20 Mg Tablet, 203 MG PO DAILY, #30 TAB 04/09/17 Albuterol Sulfate* (Proair HFA*) 8.5 Gm Hfa.aer.ad, 2 PUFF INH Q6 for WHEEZING, #1 INHALER 04/09/17 Pantoprazole* (Protonix*) 40 Mg Tablet.dr, 40 MG PO DAILY, TAB 04/09/17 Loratadine* (Loratadine*) 10 Mg Tablet, 10 MG PO DAILY, #30 TAB 04/09/17 Current Medications Sodium Chloride 1,000 ml @ 75 mls/hr [id number] IV Last administered on 07/16/18at 03:18; Admin Dose 75 MLS/HR; Start 07/11/18 at 16:44 IV Flush (NS 3 ml) 3 ml PER PROTOCOL IV ; Start 07/11/18 at 17:00 Ondansetron HCl (Zofran Inj) 4 mg Q6H PRN IV NAUSEA/VOMITING Last administered on 07/15/18at 22:34; Admin Dose 4 MG; Start 07/11/18 at 17:00 Morphine Sulfate (morphine) 2 mg Q4H PRN IV .SEVERE PAIN 7-10 Last administered on 07/15/18 18:11; Admin Dose 2 MG; Start 07/11/18 at 17:00 Albuterol (Proventil 0.083% (Neb)) 2.5 mg Q6H RESP THERAPY PRN HHN SHORTNESS OF BREATH Last administered on 07/13/18 04:18; Admin Dose 2.5 MG; Start 07/11/18 at 17:00 Amylase/Lipase/ Protease (Creon ([id number])) 2 cap WITH MEALS PO Last administered on 07/16/18 09:34; Admin Dose 2 CAP; Start 07/12/18 at 12:00 Acetaminophen (Tylenol Tab) 500 mg Q6H PRN PO MILD PAIN(1-3)OR ELEVATED TEMP Last administered on 07/14/18 00:12; Admin Dose 500 MG; Start 07/12/18 at 12:00 Atorvastatin Calcium (Lipitor) 10 mg HS PO Last administered on 07/15/18at 2 1:00; Admin Dose 10 MG; Start 07/12/18 at 21:00 Pantoprazole (Protonix Tab) 40 mg DAILY@06 PO Last administered on 07/15/18 06:00; Admin Dose 40 MG; Start 07/13/18 at 06:00 Albuterol (Ventolin Hfa) 2 puff Q4H RESP THERAPY PRN INH SHORTNESS OF BREATH; Start 07/12/18 at 21:00 Loratadine (Claritin) 10 mg DAILY PO Last administered on 07/15/18 08:42; Admin Dose 10 MG; Start 07/14/18 at 15:00 Meds reviewed: Yes Allergies Coded Allergies: No Known Allergy (Unverified , 07/11/18) Allergies Reviewed: Yes Labs/Studies Labs Reviewed: Reviewed by anesthesiologist Result Diagram: 07/16/18 0546 07/16/18 0548 Laboratory Tests 07/16/18 05:46 07/16/18 05:48 test: N/A Studies: ECG Pre-procedure Exam Last vitals Vital Signs Date Temp Pulse Resp B/P (MAP) Pulse Ox O2 O2 Flow FiO2 Time Delivery Rate 07/16/18 98.1 66 22 121/70 97 Room Air 14:05 (87) 07/13/18 21 04:20 Airway: Adequate mouth opening, Adequate thyromental dist Mallampati: Mallampati II Teeth: Normal Lung: Normal Heart: Normal ASA Physical Status ASA physical status: 3 Emergency: None Planned Anesthetic General/MAC: MAC Planned Pain Management Parenteral pain med Pre-operative Attestations Prior to commencing anesthesia and surgery, the patient was re-evaluated, there was verification of: *The patient's identity *The results of appropriate recent lab work and preoperative vital signs *The above evaluation not changing prior to induction *Anesthetic plan, risk benefits, alternative and complications discussed with patient/family; questions answered; patient/family understands, accepts and wishes to proceed. KRIS PETERS MD July 16, 2018 14:35
--- NOTE | 2018-07-16 14:36 | PAC ---
Date/Time of Note Date/Time of Note DATE: 07/16/18 TIME: 14:35 Post-Anesthesia Notes Post-Anesthesia Note Last documented vital signs Vital Signs Date Temp Pulse Resp B/P (MAP) Pulse Ox O2 O2 Flow FiO2 Time Delivery Rate 07/16/18 98.1 66 22 121/70 97 Room Air 14:05 (87) 07/13/18 21 04:20 Activity: WNL Respiratory function: WNL Cardiovascular function: WNL Mental status: Baseline Pain reasonably controlled: Yes Hydration appropriate: Yes Nausea/Vomiting absent: Yes Comments BP:135/77, P:50, Spo2:100%, T:98,8 KRIS PETERS MD July 16, 2018 14:36
[2018-07-16] MEDS: morphine 2 MG INJ IV PRN ×2 (16:05→21:20)
[2018-07-16] MEDS: ONDANSETRON 4 MG INJ IV PRN (16:05)
[2018-07-16] MEDS: ATORVASTATIN 10 MG TAB PO SCH (21:21)
[2018-07-17] MEDS: morphine 2 MG INJ IV PRN ×5 (03:34→22:08)
[2018-07-17] MEDS: PANTOPRAZOLE (EC) 40 MG TAB PO SCH (05:56)
[2018-07-17] MEDS: ONDANSETRON 4 MG INJ IV PRN ×2 (05:59→18:06)
[2018-07-17 07:35] VITALS: BP 110/61; PULSE 74; RESP 16
[2018-07-17] MEDS: ACETAMINOPHEN 500 MG TAB PO PRN (08:52)
[2018-07-17] MEDS: LORATADINE 10 MG TAB PO SCH (08:57)
[2018-07-17] MEDS: CREON (24K-76K-120K) 1 CAP PO SCH ×3 (08:59→18:02)
[2018-07-17] MEDS: SOD CHLORIDE 0.9% 1,000 ML IV SCH ×2 (09:56→21:52)
[2018-07-17 14:30] VITALS: BP 112/73; PULSE 59; RESP 18
--- NOTE | 2018-07-17 19:49 | PN ---
Date/Time of Note Date/Time of Note DATE: 07/17/18 TIME: 19:48 Assessment/Plan VTE Prophylaxis Risk score (from [facility])>0 risk: 4 SCD applied (from [facility]): No SCD contraindicated: low risk/ambulating Pharmacological prophylaxis: NA/contraindicated, LMWH Pharm contraindication: surgical contra Lines/Catheters IV Catheter Type (from [facility]): [place] Assessment/Plan Hospital Course A/P 1. Recurrent Pancreatitis? stable. sp EGD. mrcp/ eus?. Ca 19-9 ~50 2. Chr pancreatitis; +/- pseudocyst? on creon 3. S/p lap vance 4. Asthma 5. DL 6. Anemia. test negative 7. Dm 8. Metabolic Syndrome 9. Gastritis/ erosive; check path S: 07/15 tolerating soft diet; mild/ mod pain 07/16 moderate pain. No nausea vomiting fever or dyspnea 07/17 better O: vss PE no pallor/ icterus reg s1s2 no mrg ctab bs+ nt; nd; no r r g; no ecchymosis no edema Result Diagram: 07/17/18 0708 07/17/18 0708 Results 24hrs Laboratory Tests Test 07/17/18 07:08 White Blood Count 6.6 Red Blood Count 3.98 L Hemoglobin 10.9 L Hematocrit 34.0 L Mean Corpuscular Volume 85.4 Mean Corpuscular Hemoglobin 27.4 L Mean Corpuscular Hemoglobin Concent 32.1 Red Cell Distribution Width 13.7 Platelet Count 180 Mean Platelet Volume 9.6 Immature Granulocytes % 0.200 Neutrophils % 49.5 Lymphocytes % 42.3 Monocytes % 4.7 Eosinophils % 3.0 Basophils % 0.3 Nucleated Red Blood Cells % 0.0 Immature Granulocytes # 0.010 Neutrophils # 3.3 Lymphocytes # 2.8 Monocytes # 0.3 Eosinophils # 0.2 Basophils # 0.0 Nucleated Red Blood Cells # 0.0 Sodium Level 141 Potassium Level 3.8 Chloride Level 107 Carbon Dioxide Level 27 Anion Gap 7 Blood Urea Nitrogen 9 Creatinine 0.56 Est Glomerular Filtrat Rate mL/min > 60 Glucose Level 103 Calcium Level 8.9 Total Bilirubin 0.5 Direct Bilirubin 0.00 Indirect Bilirubin 0.5 Aspartate Amino Transf (AST/SGOT) 38 Alanine Aminotransferase (ALT/SGPT) 35 Alkaline Phosphatase 91 Total Protein 7.1 Albumin 3.6 Globulin 3.50 H Albumin/Globulin Ratio 1.02 Lipase 140 Exam/Review of Systems Exam Vitals Vital Signs Date Temp Pulse Resp B/P (MAP) Pulse Ox O2 O2 Flow FiO2 Time Delivery Rate 07/17/18 98.1 59 18 112/73 96 Room Air 14:30 (86) 07/16/18 5.0 14:35 Intake and Output 07/16/18 07/16/18 07/17/18 1515:00 23:00 07:00 IntakeIntake Total 400 ml 800 ml BalanceBalance 400 ml 800 ml Results Results 24hrs Laboratory Tests Test 07/17/18 07:08 White Blood Count 6.6 Red Blood Count 3.98 L Hemoglobin 10.9 L Hematocrit 34.0 L Mean Corpuscular Volume 85.4 Mean Corpuscular Hemoglobin 27.4 L Mean Corpuscular Hemoglobin Concent 32.1 Red Cell Distribution Width 13.7 Platelet Count 180 Mean Platelet Volume 9.6 Immature Granulocytes % 0.200 Neutrophils % 49.5 Lymphocytes % 42.3 Monocytes % 4.7 Eosinophils % 3.0 Basophils % 0.3 Nucleated Red Blood Cells % 0.0 Immature Granulocytes # 0.010 Neutrophils # 3.3 Lymphocytes # 2.8 Monocytes # 0.3 Eosinophils # 0.2 Basophils # 0.0 Nucleated Red Blood Cells # 0.0 Sodium Level 141 Potassium Level 3.8 Chloride Level 107 Carbon Dioxide Level 27 Anion Gap 7 Blood Urea Nitrogen 9 Creatinine 0.56 Est Glomerular Filtrat Rate mL/min > 60 Glucose Level 103 Calcium Level 8.9 Total Bilirubin 0.5 Direct Bilirubin 0.00 Indirect Bilirubin 0.5 Aspartate Amino Transf (AST/SGOT) 38 Alanine Aminotransferase (ALT/SGPT) 35 Alkaline Phosphatase 91 Total Protein 7.1 Albumin 3.6 Globulin 3.50 H Albumin/Globulin Ratio 1.02 Lipase 140 Medications Medication Current Medications Sodium Chloride 1,000 ml @ 75 mls/hr [id number] IV Last administered on 07/17/18at 09:56; Admin Dose 75 MLS/HR; Start 07/11/18 at 16:44 IV Flush (NS 3 ml) 3 ml PER PROTOCOL IV ; Start 07/11/18 at 17:00 Ondansetron HCl (Zofran Inj) 4 mg Q6H PRN IV NAUSEA/VOMITING Last administered on 07/17/18at 18:06; Admin Dose 4 MG; Start 07/11/18 at 17:00 Morphine Sulfate (morphine) 2 mg Q4H PRN IV .SEVERE PAIN 7-10 Last administered on 07/17/18 18:02; Admin Dose 2 MG; Start 07/11/18 at 17:00 Albuterol (Proventil 0.083% (Neb)) 2.5 mg Q6H RESP THERAPY PRN HHN SHORTNESS OF BREATH Last administered on 07/13/18 04:18; Admin Dose 2.5 MG; Start 07/11/18 at 17:00 Amylase/Lipase/ Protease (Creon ([id number])) 2 cap WITH MEALS PO Last administered on 07/17/18 18:02; Admin Dose 2 CAP; Start 07/12/18 at 12:00 Acetaminophen (Tylenol Tab) 500 mg Q6H PRN PO MILD PAIN(1-3)OR ELEVATED TEMP Last administered on 07/17/18 08:52; Admin Dose 500 MG; Start 07/12/18 at 12:00 Atorvastatin Calcium (Lipitor) 10 mg HS PO Last administered on 07/16/18 21:21; Admin Dose 10 MG; Start 07/12/18 at 21:00 Pantoprazole (Protonix Tab) 40 mg DAILY@06 PO Last administered on 07/17/18 05:56; Admin Dose 40 MG; Start 07/13/18 at 06:00 Albuterol (Ventolin Hfa) 2 puff Q4H RESP THERAPY PRN INH SHORTNESS OF BREATH; Start 07/12/18 at 21:00 Loratadine (Claritin) 10 mg DAILY PO Last administered on 07/17/18 08:57; Admin Dose 10 MG; Start 07/14/18 at 15:00 SONI NASSAR MD July 17, 2018 19:49
[2018-07-17 20:00] VITALS: BP 119/56; PULSE 71; RESP 18
[2018-07-17] MEDS: ATORVASTATIN 10 MG TAB PO SCH (21:47)
[2018-07-18] MEDS: ONDANSETRON 4 MG INJ IV PRN (00:55)
[2018-07-18 02:00] VITALS: BP 107/69; PULSE 80; RESP 19
[2018-07-18] MEDS: morphine 2 MG INJ IV PRN ×4 (02:30→15:02)
[2018-07-18] MEDS ORDERED: SENNA TAB PO SCH (03:00)
[2018-07-18] MEDS ORDERED: MAGNESIUM HYDROXIDE 30ML CUP PO ONE ×2 (03:00→15:00)
[2018-07-18] MEDS: PANTOPRAZOLE (EC) 40 MG TAB PO SCH (06:40)
[2018-07-18 08:00] VITALS: BP 106/58; PULSE 76; RESP 20
[2018-07-18] MEDS: LORATADINE 10 MG TAB PO SCH (09:06)
[2018-07-18] MEDS: CREON (24K-76K-120K) 1 CAP PO SCH ×3 (09:06→17:49)
[2018-07-18] MEDS ORDERED: DOCUSATE SODIUM 100 MG CAP PO SCH (11:30)
--- NOTE | 2018-07-18 12:58 | CONS ---
DATE OF ADMISSION: 07/11/2018 DATE OF CONSULTATION: 07/18/2018 CHIEF COMPLAINT: At this time the patient was admitted to the hospital with abdominal pain, pancreat itis, now with abdominal pain that is much better. No nausea, no vomiting, no fever, no jaundice, no GI bleeding. PHYSICAL EXAMINATION: GENERAL: The patient is alert and not in distress. VITAL SIGNS: Temperature 98, blood pressure 106/58. CARDIOVASCULAR: Normal heart sounds. RESPIRATORY: Normal breath sounds. ABDOMEN: Soft. LABORATORY WORKUP: On 07/17/2018. The WBC 6600, hemoglobin is 10.9. The CA 19-9 is 40, normal is u p to 37. CLINICAL IMPRESSION: Pancreatitis, etiology not known. I do not think it is secondary to hypertriglyceridemia, although his hypertriglyceridemia is mildly e levated. It is to be noted that she probably could have passed a common bile duct stone. She has history of a cholecystectomy. PLAN: At this time, recommend symptomatic treatment with a PPI, Creon and pain management. The [facility] is scheduled to have endoscopic ultrasound as an outpatient. At this time the patient is reluct ant to have MRCP. Dictated By: MARGA HERRERA MD NC/NTS Conf#: [id number] DID#: [id number] CC: MICHELLE CONLEY MD;*EndCC*
[2018-07-18 14:00] VITALS: BP 118/64; PULSE 76; RESP 20
--- NOTE | 2018-07-18 14:59 | DS ---
Date/Time of Note Date/Time of Note DATE: 07/18/18 TIME: 14:53 Discharge Summary Admission/Discharge Info Admit Date/Time July 11, 2018 at 15:15 Discharge Date/Time Patient Condition: Good Consults Dr Hendrickson 1wk PCP 1wk Dr Farah 1-2wks Procedures CAT scan abdomen pelvis IMPRESSION: 1. Acute pancreatitis with jadon pancreatic inflammation and fluid most notably at the pancreatic tail. Recommend clinical and laboratory correlation. 2. Multiple small fluid collections measuring up to 3 cm near the pancreatic tail, in the lesser sac and near the posterior wall of the stomach with adjacent reactive thickening of the gastric wall. These likely represent pseudocysts. 3. Hepatomegaly with steatosis. 4. Status post cholecystectomy. Neck soft tissue x-ray IMPRESSION: Degenerative spondylosis. Otherwise, unremarkable exam. Graft KUB No acute process EGD biopsy MICROSCOPIC DIAGNOSIS: Stomach, antrum/lesser curvature/fundal biopsy: -- Antral and oxyntic mucosa showing mild to moderate chronic gastritis. -- No Helicobacter pylori is identified in Giemsa stain (positive control concurrently reviewed). -- No evidence of intestinal metaplasia, dysplasia or malignancy. Hx of Present Illness Evaluated and admitted for abdominal pain Hospital Course Hospitalist coverage/hospital course Evaluated/ managed for abdominal pain/ acute pancreatitis concern. CT scan concerning for pancreatitis. No stones no alcohol. She had her gallbladder out a few months back. Due to her ongoing pain with a normalizing lipase patient underwent EGD. Gastritis and chronic superficial gastritis was seen. Patient is tolerating diet and PPI. Stable and fit for discharge. She has a referral to see a second GI for EUS. The CA-19-9 is mildly elevated and is not unusual in this case/diagnosis. On discharge patient requested specifically narcotics. I am highly concerned that patient is developing pain seeking behavior. May need outpatient behavioral health assistance. A/P 1. Recurrent Pancreatitis, stable dc. sp EGD. Outpt eus. Ca 19-9 ~50 2. Chr pancreatitis; +/- pseudocyst? on creon 3. S/p lap vance 4. Asthma 5. DL 6. Anemia. test negative 7. Dm 8. Metabolic Syndrome 9. Gastritis/ erosive; check path 10. Pain seeking behavior? Needs behavioral health assistance. S: 07/15 tolerating soft diet; mild/ mod pain 07/16 moderate pain. No nausea vomiting fever or dyspnea 07/17 no events Home Meds Reported Medications Albuterol Sulfate* (Ventolin HFA*) 18 Gm Hfa.aer.ad, 2 PUFF INHALATION Q4H, #1 INHALER 07/11/18 Loratadine* (Loratadine*) 10 Mg Tablet, 10 MG PO DAILY, #30 TAB 07/11/18 Pantoprazole* (Pantoprazole*) 40 Mg Tablet.dr, 40 MG PO AC BREAKFAST, TAB 07/11/18 Simvastatin* (Zocor*) 20 Mg Tablet, 20 MG PO QHS, #30 TAB 07/11/18 Discontinued Reported Medications Metformin Hcl* (Metformin Hcl*) 500 Mg Tablet, 500 MG PO WITH BREAKFAST, #30 TAB 07/11/18 Metformin* (Glucophage*) 500 Mg Tab, 500 MG PO BID, #30 TAB 04/09/17 Simvastatin (Simvastatin) 20 Mg Tablet, 203 MG PO DAILY, #30 TAB 04/09/17 Albuterol Sulfate* (Proair HFA*) 8.5 Gm Hfa.aer.ad, 2 PUFF INH Q6 for WHEEZING, #1 INHALER 04/09/17 Pantoprazole* (Protonix*) 40 Mg Tablet.dr, 40 MG PO DAILY, TAB 04/09/17 Loratadine* (Loratadine*) 10 Mg Tablet, 10 MG PO DAILY, #30 TAB 04/09/17 Primary Care Provider Care Physician No Primary Time spent on discharge: > 30 minutes SONI NASSAR MD July 18, 2018 14:59
[2018-07-18] MEDS ORDERED: morphine 2 MG INJ IV PRN (15:00)
[2018-07-18] MEDS ORDERED: traMADol 50 MG TAB PO PRN (15:00)
--- NOTE | 2018-07-18 15:05 | PDOCDIS ---
Discharge Instructions CONDITION [id number] Patient Condition: [id number] Stable HOME CARE INSTRUCTIONS: [id number] Diet Instructions: [id number] Activity Restrictions: [id number] Slowly Increase Activity Do not Drive FOLLOW UP/APPOINTMENTS Follow-up Plan appt Dr Hendrickson 1-2wks Dr Farah 1-2wk for [facility] PCP 1wk SONI NASSAR MD July 18, 2018 15:05
[2018-07-18] MEDS ORDERED: SENN-120 PO (15:07)
[2018-07-18] MEDS ORDERED: POLY17PO6 PO (15:07)
[2018-07-18] MEDS ORDERED: LIPA1CAP6 PO (15:07)
[2018-07-18] MEDS ORDERED: Acetaminophen PO (15:07)
[2018-07-18] MEDS ORDERED: PANT40TA4 PO (15:07)
== END 2018-07-18 18:00 | disposition home or self-care (01) | DRG 439 ==
LOC: E/R 11:07 → 2NE 15:15 → PP2 07-13 03:47
PROVIDERS: ADMIT Internal Medicine; ATTEND Internal Medicine
PROC: 0DB68ZX Excision of Stomach, Via Natural or Artificial Opening Endoscopic, Diagnostic (ICD-10-PCS; principal; 2018-07-16 14:00)
DX: K85.90 Acute pancreatitis without necrosis or infection, unspecified (principal); K86.3 Pseudocyst of pancreas; N39.0 Urinary tract infection, site not specified; K86.1 Other chronic pancreatitis; E66.9 Obesity, unspecified; Z68.30 Body mass index [BMI] 30.0-30.9, adult; E88.81 Metabolic syndrome and other insulin resistance; R16.0 Hepatomegaly, not elsewhere classified; K76.0 Fatty (change of) liver, not elsewhere classified; J45.909 Unspecified asthma, uncomplicated; Z90.49 Acquired absence of other specified parts of digestive tract; K21.9 Gastro-esophageal reflux disease without esophagitis; K29.30 Chronic superficial gastritis without bleeding; D64.9 Anemia, unspecified; E78.5 Hyperlipidemia, unspecified
CPT/HCPCS: 36415; 70360; 74018; 74177; 80053; 80061; 81001; 82150; 83036; 83615; 83690; 83735; 84100; 84145; 84484; 84703; 85025; 85610; 85730; 86301; 87086; 87880; 88305; 88312; 93005; 94640; 94664; 96361; 96374; 96375; 96376; J1885; J2270; J2405; J7030; Q9967

== ENCOUNTER 2018-07-27 16:40 | Inpatient (IN) | payer OTHER ==
[~2018-07-27] VITALS: Ht 152.4 cm; Wt 85.7 kg
[~2018-07-27 16:40] MED LIST changes: +ALBU18HF INHALATION; -ALBU8.5H8 INH; +Acetaminophen PO; +LIPA1CAP6 PO; -METF-849 PO; -PANT40TA3 PO; +PANT40TA4 PO; +POLY17PO6 PO; +SENN-120 PO; +SIMV20TA PO; -SIMV20TA2 PO
[2018-07-27] MEDS ORDERED: ONDANSETRON 4 MG INJ IV STA ×2 (16:55→19:38)
[2018-07-27] MEDS ORDERED: morphine 4 MG/ML VIAL IV STA ×2 (16:55→19:38)
[2018-07-27] MEDS ORDERED: SOD CHLORIDE 0.9% 1,000 ML IV STA (16:55)
[2018-07-27] MEDS ORDERED: IOHEXOL 300MG/ML 150 ML BTL ONE (17:39)
[2018-07-27] MEDS ORDERED: SOD CHLORIDE 0.9% 100 ML ONE (17:39)
[2018-07-27] MEDS ORDERED: LORAZEPAM 2 MG INJ IV ONE (18:00)
[2018-07-27] MEDS ORDERED: KETAMINE (50 MG/ML) 10 ML VIAL IV ONE (18:00)
[2018-07-27] MEDS ORDERED: PIPER-TAZO 3.375 GM IV (PMX) 100 ML IVPB STA (20:53)
--- NOTE | 2018-07-27 20:53 | ERD ---
ER Documentation Chief Complaint Chief Complaint AP X 1 WEEK HPI This is a 48-year-old female who presents to the emergency department complaining of severe epigastric pain for 1 week. The patient was recently admitted for the same complaint on July 11, 2018 roughly 3 weeks ago. She had been diagnosed with pancreatitis. At that time she had peripancreatic inflammation at the pancreatic tail. The patient had a previous cholecys tectomy. During her previous hospitalization she had a CA-19-9 that was mildly elevated. She was instructed to follow-up with an outpatient upper endoscopy which she states has been performed. The patient states she has no history of alcohol abuse. The patient is currently on Creon. The patient states the pain is 10 out of 10 intensity. There is no alleviating or exacerbating factors. The patient states pain does radiate to her back. She has been unable to tolerate oral intake. ROS All systems reviewed and are negative except as per history of present illness. Medications Home Meds Active Scripts Pantoprazole* (Pantoprazole*) 40 Mg Tablet., 40 MG PO DAILY@06 for 30 Days, #30 Prov:SONI NASSAR MD 07/18/18 Reported Medications Albuterol Sulfate* (Ventolin HFA*) 18 Gm Hfa.aer.ad, 2 PUFF INHALATION Q4H, #1 INHALER 07/11/18 Loratadine* (Loratadine*) 10 Mg Tablet, 10 MG PO DAILY, #30 TAB 07/11/18 Simvastatin* (Zocor*) 20 Mg Tablet, 20 MG PO QHS, #30 TAB 07/11/18 Discontinued Scripts Polyethylene Glycol* (Miralax*) 17 Gm Powd.pack, 17 GM PO BID PRN for CONSTIPATION for 7 Days, #10 PACKET 2 Refills Prov:SONI NASSAR MD 07/18/18 Sennosides* (Senna Lax*) 8.6 Mg Tablet, 2 TAB PO BID for 10 Days, #20 TAB 2 Refills Prov:SONI NASSAR MD 07/18/18 Jijmud-Khicdzsx-Bglglzy* (Suma WINSTON* 24,000) 24,000 L-76,000-120,000 Unit Capsule., 2 CAP PO WITH MEALS for 14 Days, #60 2 Refills Prov:SONI NASSAR MD 07/18/18 [Acetaminophen Tab] 500 TAB No Conflict Check, 500 MG PO Q6H PRN for MILD PAIN(1-3)OR ELEVATED TEMP for 1 Day, TAB Prov:SONI NASSAR MD 07/18/18 Allergies Allergies: Coded Allergies: No Known Allergy (Unverified , 07/27/18) PMhx/Soc History of Surgery: Yes (Appendectomy and cholecystectomy) Anesthesia Reaction: No Hx Neurological Disorder: Yes (migranes) Hx Respiratory Disorders: Yes (asthma) Hx Cardiac Disorders: No Hx Psychiatric Problems: No (anxiety) Hx Alcohol Use: No Hx Substance Use: No Hx Tobacco Use: No Smoking Status: Never smoker Physical Exam Vitals Vital Signs Date Temp Pulse Resp B/P (MAP) Pulse Ox O2 O2 Flow FiO2 Time Delivery Rate 07/27/18 97.9 98 22 107/76 95 Room Air 20:00 (86) 07/27/18 90 17 125/86 99 Room Air 18:20 (99) 07/27/18 98.1 75 18 133/75 99 16:44 (94) Physical Exam Constitutional:Well-developed. Well-nourished. Patient screaming and appeared to be in a significant amount discomfort unable to find a comfortable position HEENT:Normocephalic. Atraumatic.Pupils were equal round reactive to light. Moist mucous membranes.No tonsillar exudates. Neck: No nuchal rigidity. No lymphadenopathy. No posterior cervical spine tenderness or step-offs. Respiratory: Not using accessory muscles of respiration.Lungs were clear to auscultation bilaterally. No rhonchi. No rales. No wheezing. Cardiovascular: Regular rate regular rhythm.No murmurs. No rubs were appreciated.S1, S2 normal. Distal pulses are palpable 2+ bilaterally. GI: Abdomen was soft. Epigastric tenderness with voluntary guarding. Non Distended. No pulsatile abdominal masses or bruits. No rebound. Bowel sounds were present and normal. Muscle skeletal: Full range of motion of both the upper and lower extremities bilaterally.Normal muscle tone.No assymetrical calf tenderness or swelling. Skin: No petechia, no purpura. No lesions on the palms or the soles of the feet. No maculopapular rash. NEURO: Patient was alert, awake, orientated x3.No facial droop. Gait not observed as patient was screaming in pain and unable to ambulate.Speech had regular rate and rhythm. No focal neurological deficits. Result Diagram: 07/27/18 1708 07/27/18 1708 Results 24 hrs Laboratory Tests Test 07/27/18 17:08 White Blood Count 13.6 10^3/ul Red Blood Count 4.46 10^6/ul Hemoglobin 12.2 g/dl Hematocrit 38.4 % Mean Corpuscular Volume 86.1 fl Mean Corpuscular Hemoglobin 27.4 pg Mean Corpuscular Hemoglobin Concent 31.8 g/dl Red Cell Distribution Width 14.0 % Platelet Count 251 10^3/UL Mean Platelet Volume 9.9 fl Immature Granulocytes % 0.400 % Neutrophils % 76.3 % Lymphocytes % 19.0 % Monocytes % 3.6 % Eosinophils % 0.4 % Basophils % 0.3 % Nucleated Red Blood Cells % 0.0 /100WBC Immature Granulocytes # 0.050 10^3/ul Neutrophils # 10.4 10^3/ul Lymphocytes # 2.6 10^3/ul Monocytes # 0.5 10^3/ul Eosinophils # 0.1 10^3/ul Basophils # 0.0 10^3/ul Nucleated Red Blood Cells # 0.0 10^3/ul Prothrombin Time 13.9 Sec Prothrombin Time Ratio 1.1 INR International Normalized Ratio 1.06 Activated Partial Thromboplast Time 30.4 Sec Sodium Level 140 mmol/L Potassium Level 3.7 mmol/L Chloride Level 104 mmol/L Carbon Dioxide Level 24 mmol/L Anion Gap 12 Blood Urea Nitrogen 13 mg/dl Creatinine 0.56 mg/dl Est Glomerular Filtrat Rate mL/min > 60 mL/min Glucose Level 179 mg/dl Calcium Level 9.4 mg/dl Total Bilirubin 0.4 mg/dl Direct Bilirubin 0.00 mg/dl Indirect Bilirubin 0.4 mg/dl Aspartate Amino Transf (AST/SGOT) 52 IU/L Alanine Aminotransferase (ALT/SGPT) 32 IU/L Alkaline Phosphatase 113 IU/L Troponin I < 0.012 ng/ml Total Protein 8.1 g/dl Albumin 4.2 g/dl Globulin 3.90 g/dl Albumin/Globulin Ratio 1.07 Amylase Level 1989 U/L Lipase 73853 U/L Current Medications Medications Dose Sig/Gus Start Time Status Last (Trade) Ordered Route PRN Stop Time Admin Dose Reason Admin Sodium 1,000 ml @ Q1H STAT 07/27/18 DC 07/27/18 Chloride 1,000 mls/hr IV 16:55 07/27/18 16:58 17:54 Morphine 4 mg ONCE STAT 07/27/18 DC 07/27/18 Sulfate IV 16:55 07/27/18 16:58 (morphine) 16:56 Ondansetron 4 mg ONCE STAT 07/27/18 DC 07/27/18 HCl (Zofran IV 16:55 07/27/18 16:58 Inj) 16:56 Lorazepam 1 mg ONCE ONCE 07/27/18 DC 07/27/18 (Ativan) IV 18:00 07/27/18 17:43 18:01 IV Flush 10 ml STK-MED 07/27/18 DC (NS 10 ml) ONCE .ROUTE 17:39 07/27/18 17:40 Sodium 100 ml @ ud STK-MED 07/27/18 DC Chloride ONCE .ROUTE 17:39 07/27/18 17:40 Iohexol 150 ml STK-MED 07/27/18 DC (Omnipaque ONCE .ROUTE 17:39 07/27/18 300mg/ ml) 17:40 Ketamine 24 mg ONCE ONCE 07/27/18 DC 07/27/18 HCl IV 18:00 07/27/18 18:19 (Ketalar) 18:01 Morphine 4 mg ONCE STAT 07/27/18 DC 07/27/18 Sulfate IV 19:38 07/27/18 19:55 (morphine) 19:39 Ondansetron 4 mg ONCE STAT 07/27/18 DC 07/27/18 HCl (Zofran IV 19:38 07/27/18 20:00 Inj) 19:39 Procedures/MDM This patient presented to the emergency department with abdominal pain and was seen and evaluated by myself. My differential diagnosis included but was not limited to abdominal aortic aneurysm, appendicitis, pancreatitis, perforated peptic ulcer, perforated viscus, Boerhaaves syndrome or visceral pain such as diverticulitis, DKA, esophagitis, hepatitis or bowel obstruction. The patient was placed on a campus monitor, continuous pulse oximetry, and IV a ccess was established by nursing staff. The patient was immediately given intravenous morphine and Zofran for analgesia control. I obtained a 12-lead EKG tracing to rule out for atypical microinfarction. 12 Lead EKG tracing ordered and reviewed by myself showed: Sinus tachycardia 102 bpm and no arrhythmia. IA interval normal. QRS duration normal. No ST segment elevation No ST segment depression. No changes consistent with acute ischemia. The patient's pancreatic liver enzymes were significantly elevated with a lipase of 17,728. Amylase was 1989. The patient had significant recurrence of her pain despite receiving multiple doses of opiate analgesic medication. She was also given IV Ativan as she was attempting to remove her IV and verbal de- escalation was unable to calm the patient down. I do feel is necessary to obtain a CT scan of her abdomen due to the severity of her pain and physical exam findings. This was reviewed by the radiologist and indicate the following: Worsening of phlegmonous infiltration peripancreatic fat compatible with progression of acute pancreatitis. Multiple small fluid collections adjacent to the tail of pancreas and dorsal aspect of stomach consistent with underlying chronic pancreatitis. 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 Enlarged fatty liver. Post cholecystectomy. No evidence of choledocholithiasis. Tiny left renal cyst. No further workup required. Blood cultures were obtained. I am going to administer prophylactic antibiotics which will be intravenous Zofran. She will be admitted in serious condition to the hospitalist Dr. Kaminski. She will go to the medical surgical floor. Critical Care: Time: 80 minutes Treatments/Evaluations: Close monitoring and treatment of unstable vital signs, cardiorespiratory, and neurologic status, while maintaining tight balance of fluid, respiratory, and cardiac interventions. Time does not include performing any of the above billable procedures. Departure Diagnosis: Primary Impression: Pancreatitis Chronicity: acute Pancreatitis type: unspecified pancreatitis type Acute pancreatitis complication: unspecified Qualified Codes: K85.90 - Acute pancreatitis without necrosis or infection, unspecified Condition: Serious GET STEWART MD Jul 27, 2018 20:53
[2018-07-27] MEDS ORDERED: ONDANSETRON 4 MG INJ IV PRN (21:30)
[2018-07-27] MEDS ORDERED: ACETAMINOPHEN 325 MG TAB PO PRN (21:30)
[2018-07-27] MEDS ORDERED: NACL 0.9% 3 ML SYG IV SCH (21:30)
--- NOTE | 2018-07-27 21:36 | HP ---
Date/Time of Note Date/Time of Note DATE: 07/27/18 TIME: 21:23 Assessment/Plan VTE Prophylaxis SCD applied (from Nsg): Yes Pharmacological prophylaxis: NA/contraindicated Pharm contraindication: low risk/ambulating Lines/Catheters IV Catheter Type (from Nrsg): Saline Lock Assessment/Plan Assessment/Plan 48 yo obese woman with history of dyslipidemia, asthma, recurrent pancreatitis presents with pancreatitis. #Acute pancreatitis - Etiology unclear. Patient is s/p cholecystectomy months ago, denies alcohol, triglycerides normal last admission. No family history of pancreatitis. - Of note, both of these episodes of pancreatitis occurred while the patient was fasting for . Brief literature review shows there may be a correlation (1). - Will check EtOH levels. - NPO, aggressive IV fluids - Dr. Hendrickson should be consulted in the morning. - Aggressive pain control with IV opioids - Antibiotics ordered in ED but I will hold off; no evidence of necrotizing infection right now. #Dyslipidemia - Cont statin #Dyspepsia - Cont IV PPI (or H2 aimee) DVT: SCDs GI: None 1. High rate of acute pancreatitis during the fast. Fatuma Bergman, Ambrocio Thompson et al. Eur J Gastroenterol Hepatol. 2018 [place];30(6):608-611. https://www.ncbi.nlm.nih.gov/pubmed/89798378 Result Diagram: 07/27/18 1708 07/27/18 1708 HPI/ROS Admit Date/Time Admit Date/Time 27 July 2018 Hx of Present Illness Ms. Villalobos is a 48 yo woman with history of recurrent pancreatitis who presents today with acute onset abdominal pain and vomiting. She was recently hospitalized at [facility] 07/11- with acute pancreatitis, although enzymes were not very elevated then. Since discharge she had been in her usual state of health until last night, when she developed mild aching epigastric pain. This morning she woke up with severe stabbing epigastric pain radiating to the back, and had several episodes of nonbloody emesis. Patient had a cholecystectomy done in October 2017. Since then, the patient has been having nonspecific abdominal pain. The patient follows up with Dr. Hendrickson as outpatient and was in the process of seeing Dr. Farah because of her history of recurrent pancreatitis. Patient was complaining of chills. In the ED she was afebrile, vitals unremkarable. Labs notable for WBC 13.[address] lip[address] 17,000. CT showed acute pancreatitis and splenic vein occlusion. ROS She denies recent chills, night sweats, anorexia, weight loss, dyspnea, cough, chest pain/pressure, palpitations, diarrhea, constipation, dysuria, hematuria. PMH/Family/Social Past Medical History Dyslipidemia Recurrent pancreatitis Dyspepsia Asthma Medications Current Medications Ondansetron HCl (Zofran Inj) 4 mg ER BRIDGE PRN IV NAUSEA/VOMITING; Start 07/27/18 at 21:30; Stop 07/28/18 at 21:29 Acetaminophen (Tylenol Tab) 650 mg ER BRIDGE PRN PO .MILD PAIN 1-3 OR TEMP; Start 07/27/18 at 21:30; Stop 07/28/18 at 21:29 IV Flush (NS 3 ml) 3 ml PER PROTOCOL IV ; Start 07/27/18 at 21:30; Status UNV Ondansetron HCl (Zofran Inj) 4 mg Q6H PRN IV NAUSEA/VOMITING; Start 07/27/18 at 21:30; Status UNV Acetaminophen (Tylenol Tab) 650 mg Q6H PRN PO .PAIN 1-3 OR TEMP; Start 07/27/18 at 21:30; Status UNV Hydromorphone HCl (Dilaudid) 2 mg Q4H PRN IV .SEVERE PAIN 7-10; Start 07/27/18 at 21:30; Status UNV Pantoprazole (Protonix Iv) 40 mg DAILY@06 IV ; Start 07/28/18 at 06:00; Status UNV Lactated Ringer's 1,000 ml @ 200 mls/hr Q5H IV ; Start 07/27/18 at 21:30; Status UNV Coded Allergies: No Known Allergy (Unverified , 07/27/18) Past Surgical History Past Surgical Hx: cholecystectomy (Oct 2017) Family History Significant Family History: other (no family history of recurrent pancreatitis. ) Social History Alcohol Use: none Smoking Status: Never smoker Drug Use: none Exam/Review of Systems Vital Signs Vitals Vital Signs Date Temp Pulse Resp B/P (MAP) Pulse Ox O2 O2 Flow FiO2 Time Delivery Rate 07/27/18 97.9 98 22 107/76 95 Room Air 20:00 (86) Exam Exam Gen: Obese woman, heavily sedated but awake and responsive to questions. Eyes: PERRL, no icterus HEENT: Moist mucous membranes, clear oropharynx Neck: Supple, no lymphadenopathy Card: Regular rate and rhythm, no murmurs Pulm: Clear to auscultation bilaterally Abd: Hypoactive bowel sounds. Obese, nondistended. Well healed lap surgical scars. Diffusely tender to light palpation. Ext: No cyanosis/clubbing/edema Skin: warm, dry, well perfused. MAKAYLA FORD MD Jul 27, 2018 21:33
[2018-07-27] MEDS: LACTATED RINGER'S 1,000 ML IV SCH (21:44)
[2018-07-27 23:45] VITALS: BP 131/73; PULSE 99; RESP 19
[2018-07-27] MEDS: HYDROmorphONE 2 MG/ML SYG IV PRN (23:58)
[2018-07-28 00:29] VITALS: Ht 152.4 cm; Wt 85.7 kg
[2018-07-28] MEDS: LACTATED RINGER'S 1,000 ML IV SCH ×5 (02:22→22:46)
[2018-07-28] MEDS: HYDROmorphONE 2 MG/ML SYG IV PRN ×4 (05:15→22:01)
[2018-07-28] MEDS: ONDANSETRON 4 MG INJ IV PRN ×3 (05:15→23:27)
[2018-07-28] MEDS ORDERED: PANTOPRAZOLE 40 MG INJ IV SCH (06:00)
[2018-07-28 07:49] VITALS: BP 101/69; PULSE 84; RESP 18
[2018-07-28] MEDS ORDERED: PE/SHARK OIL/MO/PETROL 30 GM OINT PR PRN (11:30)
[2018-07-28] MEDS ORDERED: ALBUTEROL 18 GM INHALER INH PRN (11:30)
[2018-07-28] MEDS: ACETAMINOPHEN 325 MG TAB PO PRN (12:41)
[2018-07-28 14:00] VITALS: BP 108/64; PULSE 74; RESP 16
--- NOTE | 2018-07-28 15:07 | PN ---
Date/Time of Note Date/Time of Note DATE: 07/28/18 TIME: 14:59 Assessment/Plan VTE Prophylaxis Risk score (from [facility] [place])>0 risk: 4 SCD applied (from [facility] [place]): Yes Pharmacological prophylaxis: heparin Lines/Catheters IV [facility]ter Type (from [facility]): Peripheral IV Urinary Cath still in place: No Assessment/Plan Hospital Course Assessment/Plan 1.Acute pancreatitis - Etiology unclear. Patient is s/p cholecystectomy. No choledocholithiasis per abd imaging. denies alcohol, triglycerides normal last admission. No family history of pancreatitis. - Of note, both of these episodes of pancreatitis occurred while the patient was fasting for Ramada. - Will check EtOH levels. - NPO, - Continue IVF - Dr. Hendrickson made aware - continue analgesics prn 2. Dyslipidemia - Cont statin once can tolerate oral intake 3. Dyspepsia - Cont IV PPI DISPO/PLAN: continue with ivf and analgesics. keep npo for now. Await for clinical improvement. Discussed plan of care with Dr. Ignacio Result Diagram: 07/28/1843007/28/18 0431 Results 24hrs Laboratory Tests Test 07/27/18 17:08 07/28/18 04:28 07/28/18 04:31 White Blood Count 13.6 #H 10.7 # Red Blood Count 4.46 3.85 L Hemoglobin 12.2 10.7 L Hematocrit 38.4 33.1 L Mean Corpuscular Volume 86.1 86.0 Mean Corpuscular Hemoglobin 27.4 L 27.8 L Mean Corpuscular Hemoglobin Concent 31.8 L 32.3 Red Cell Distribution Width 14.0 14.3 Platelet Count 251 # 236 Mean Platelet Volume 9.9 10.2 Immature Granulocytes % 0.400 0.400 Neutrophils % 76.3 62.3 Lymphocytes % 19.0 31.3 Monocytes % 3.6 5.1 Eosinophils % 0.4 0.6 Basophils % 0.3 0.3 Nucleated Red Blood Cells % 0.0 0.0 Immature Granulocytes # 0.050 H 0.040 H Neutrophils # 10.4 H 6.7 Lymphocytes # 2.6 3.3 H Monocytes # 0.5 0.5 Eosinophils # 0.1 0.1 Basophils # 0.0 0.0 Nucleated Red Blood Cells # 0.0 0.0 Prothrombin Time 13.9 Prothrombin Time Ratio 1.1 INR International Normalized Ratio 1.06 Activated Partial Thromboplast Time 30.4 Sodium Level 140 140 Potassium Level 3.7 4.3 Chloride Level 104 107 Carbon Dioxide Level 24 27 Anion Gap 12 6 Blood Urea Nitrogen 13 14 Creatinine 0.56 0.55 Est Glomerular Filtrat Rate mL/min > 60 > 60 Glucose Level 179 121 # Calcium Level 9.4 8.7 Total Bilirubin 0.4 0.7 Direct Bilirubin 0.00 0.00 Indirect Bilirubin 0.4 0.7 Aspartate Amino Transf (AST/SGOT) 52 H 37 Alanine Aminotransferase (ALT/SGPT) 32 25 Alkaline Phosphatase 113 79 Troponin I < 0.012 Total Protein 8.1 6.6 # Albumin 4.2 3.4 Globulin 3.90 H 3.20 Albumin/Globulin Ratio 1.07 1.06 Triglycerides Level 276 H Amylase Level 1989 H Lipase 94115 H Ethyl Alcohol Level < 10.0 H Immunoglobulin G 1213 Hemoglobin A1c 6.8 H Phosphorus Level 5.5 H Magnesium Level 2.0 Subjective 24 Hr Interval Summary Free Text/Dictation still reports having epigastric abdominal pain Exam/Review of Systems Exam Vitals Vital Signs Date Temp Pulse Resp B/P (MAP) Pulse Ox O2 O2 Flow FiO2 Time Delivery Rate 07/28/18 98.2 74 16 108/64 99 14:00 (79) 07/28/18 Nasal 2.0 08:20 Cannula Intake and Output 07/27/18 07/27/18 07/28/18 1515:00 23:00 07:00 IntakeIntake Total 1550 ml BalanceBalance 1550 ml Constitutional: alert, oriented Psych: nl mood/affect Respiratory: clear to auscultation, normal air movement Cardiovascular: regular rate and rhythm Gastrointestinal: soft, tender Musculoskeletal: No swelling Neurological: SE[employer] II-XII intact, nl mental status, nl speech Skin: nl turgor Results Results 24hrs Laboratory Tests Test 07/27/18 17:08 07/28/18 04:28 07/28/18 04:31 White Blood Count 13.6 #H 10.7 # Red Blood Count 4.46 3.85 L Hemoglobin 12.2 10.7 L Hematocrit 38.4 33.1 L Mean Corpuscular Volume 86.1 86.0 Mean Corpuscular Hemoglobin 27.4 L 27.8 L Mean Corpuscular Hemoglobin Concent 31.8 L 32.3 Red Cell Distribution Width 14.0 14.3 Platelet Count 251 # 236 Mean Platelet Volume 9.9 10.2 Immature Granulocytes % 0.400 0.400 Neutrophils % 76.3 62.3 Lymphocytes % 19.0 31.3 Monocytes % 3.6 5.1 Eosinophils % 0.4 0.6 Basophils % 0.3 0.3 Nucleated Red Blood Cells % 0.0 0.0 Immature Granulocytes # 0.050 H 0.040 H Neutrophils # 10.4 H 6.7 Lymphocytes # 2.6 3.3 H Monocytes # 0.5 0.5 Eosinophils # 0.1 0.1 Basophils # 0.0 0.0 Nucleated Red Blood Cells # 0.0 0.0 Prothrombin Time 13.9 Prothrombin Time Ratio 1.1 INR International Normalized Ratio 1.06 Activated Partial Thromboplast Time 30.4 Sodium Level 140 140 Potassium Level 3.7 4.3 Chloride Level 104 107 Carbon Dioxide Level 24 27 Anion Gap 12 6 Blood Urea Nitrogen 13 14 Creatinine 0.56 0.55 Est Glomerular Filtrat Rate mL/min > 60 > 60 Glucose Level 179 121 # Calcium Level 9.4 8.7 Total Bilirubin 0.4 0.7 Direct Bilirubin 0.00 0.00 Indirect Bilirubin 0.4 0.7 Aspartate Amino Transf (AST/SGOT) 52 H 37 Alanine Aminotransferase (ALT/SGPT) 32 25 Alkaline Phosphatase 113 79 Troponin I < 0.012 Total Protein 8.1 6.6 # Albumin 4.2 3.4 Globulin 3.90 H 3.20 Albumin/Globulin Ratio 1.07 1.06 Triglycerides Level 276 H Amylase Level 1989 H Lipase 96462 H Ethyl Alcohol Level < 10.0 H Immunoglobulin G 1213 Hemoglobin A1c 6.8 H Phosphorus Level 5.5 H Magnesium Level 2.0 Medications Medication Current Medications IV Flush (NS 3 ml) 3 ml PER PROTOCOL IV ; Start 07/27/18 at 21:30 Ondansetron HCl (Zofran Inj) 4 mg Q6H PRN IV NAUSEA/VOMITING Last administered on 07/28/18at 05:15; Admin Dose 4 MG; Start 07/27/18 at 21:30 Acetaminophen (Tylenol Tab) 650 mg Q6H PRN PO .PAIN 1-3 OR TEMP Last administered on 07/28/18at 12:41; Admin Dose 650 MG; Start 07/27/18 at 21:30 Hydromorphone HCl (Dilaudid) 2 mg Q4H PRN IV .SEVERE PAIN 7-10 Last administered on 07/28/18at 10:04; Admin Dose 2 MG; Start 07/27/18 at 21:30 Pantoprazole (Protonix Iv) 40 mg DAILY@06 IV Last administered on 07/28/18at 05:14; Admin Dose 40 MG; Start 07/28/18 at 06:00 Lactated Ringer's 1,000 ml @ 200 mls/hr Q5H IV Last administered on 07/28/18at 12:44; Admin Dose 200 MLS/HR; Start 07/27/18 at 21:30 Albuterol (Ventolin Hfa) 2 puff Q4H RESP THERAPY PRN INH dyspnea; Start 07/28/18 at 13:30 AIXA AKHTAR NP Jul 28, 2018 15:07
--- NOTE | 2018-07-28 17:14 | CONS ---
DATE OF ADMISSION: 07/27/2018 DATE OF CONSULTATION: Dear Dr. Ford: Thank you for asking me to see Mrs. Barbour in GI consultation. As you know, the patient is a 48-yea r-old, Hinduism female, who is admitted to the hospital with abdominal pain. She is known to have a pa ncreatitis on a chronic basis and she was admitted and treated in a conservative fashion until last T upper endoscopy showed gastritis and she was discharged home; however, she could not take Cre on for chronic pancreatitis because the insurance company did not want to authorize from the payment. Please refer to the history and physical for more information. REVIEW OF SYSTEMS: History of dyslipidemia and dyspepsia. PHYSICAL EXAMINATION: GENERAL: The patient is a 48-year-old [place] female who at this time is alert and well built. VITAL SIGNS: She is afebrile, temperature 97.9, blood pressure is 101/69. CARDIOVASCULAR: Normal heart sounds. RESPIRATORY: Normal breath sounds. ABDOMEN: Showed minimal epigastric left upper quadrant tenderness. LABORATORY WORKUP: WBC count is 10,700, neutrophils 62, lymphocytes 31. The chemistry shows a lipase of 17,728. Amylase is 1989. The CAT scan of the abdomen shows that she has a worsening of the phlegmonous infiltration peripancre atic fat compatible with the progression of acute pancreatitis. 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 CLINICAL IMPRESSION: The patient has history of pancreatitis, status post cholecystectomy. ERCP fin dings are not available. PLAN: At this time, we would recommend Creon 1 tablet with each meal and right now, I would recommen d to keep her n.p.o. until the pancreatitis subsides and then we can start enteral nutrition and then also, Creon will be given. Once again, doctor, thank you for this consultation. Dictated By: MARGA BOWSER/CHIQUI Conf#: [id number] DID#: [id number] CC: MAKAYLA FORD MD;*EndCC*
[2018-07-28 20:15] VITALS: BP 112/59; PULSE 76; RESP 18
[2018-07-28] MEDS: FAMOTIDINE 20 MG INJ IV SCH (22:02)
[2018-07-28] MEDS: HEPARIN 5,000 UNIT/1 ML VIAL SC SCH (22:04)
[2018-07-28] MEDS: ALBUTEROL HFA 8 GM INHALER INH PRN (22:06)
[2018-07-29 02:18] VITALS: BP 118/57; RESP 17
[2018-07-29] MEDS: ACETAMINOPHEN 325 MG TAB PO PRN ×2 (02:21→19:41)
[2018-07-29] MEDS: LACTATED RINGER'S 1,000 ML IV SCH ×5 (03:47→23:07)
[2018-07-29] MEDS: HYDROmorphONE 2 MG/ML SYG IV PRN ×3 (06:13→20:45)
[2018-07-29 07:58] VITALS: BP 112/58; PULSE 82; RESP 19
[2018-07-29] MEDS: HEPARIN 5,000 UNIT/1 ML VIAL SC SCH ×2 (09:22→20:50)
[2018-07-29] MEDS: FAMOTIDINE 20 MG INJ IV SCH ×2 (09:23→20:45)
[2018-07-29] MEDS: ONDANSETRON 4 MG INJ IV PRN ×2 (11:16→18:22)
[2018-07-29 14:10] VITALS: BP 128/62; PULSE 78; RESP 19
--- NOTE | 2018-07-29 15:06 | PN ---
Date/Time of Note Date/Time of Note DATE: 07/29/18 TIME: 15:04 Assessment/Plan VTE Prophylaxis Risk score (from [facility])>0 risk: 2 SCD applied (from [facility]): Yes Pharmacological prophylaxis: heparin Lines/Catheters IV Catheter Type (from [facility]): Peripheral IV Urinary Cath still in place: No Assessment/Plan Hospital Course Assessment/Plan 1.Acute pancreatitis - Etiology unclear. Patient is s/p cholecystectomy. No choledocholithiasis per abd imaging. denies alcohol, triglycerides normal last admission. No family history of pancreatitis. - Of note, both of these episodes of pancreatitis occurred while the patient was fasting for Ramada. - Will check EtOH levels. - NPO, - Continue IVF - GI consult following - continue analgesics prn 2. Dyslipidemia - Cont statin once can tolerate oral intake 3. Dyspepsia - Cont IV PPI 4. Obesity - Weight reduction advised DISPO/PLAN: continue with ivf and analgesics. Creon per GI. f/u AM labs. continue inhouse monitoring and supportive care Discussed plan of care with Dr. Huntley Result Diagram: 07/29/18 0434 07/29/18 0434 Results 24hrs Laboratory Tests Test 07/29/18 04:34 07/29/18 05:25 White Blood Count 6.8 # Red Blood Count 3.29 L Hemoglobin 9.0 L Hematocrit 28.8 L Mean Corpuscular Volume 87.5 Mean Corpuscular Hemoglobin 27.4 L Mean Corpuscular Hemoglobin Concent 31.3 L Red Cell Distribution Width 14.3 Platelet Count 154 # Mean Platelet Volume 10.1 Immature Granulocytes % 0.300 Neutrophils % 54.6 Lymphocytes % 36.8 Monocytes % 5.3 Eosinophils % 2.9 Basophils % 0.1 Nucleated Red Blood Cells % 0.0 Immature Granulocytes # 0.020 Neutrophils # 3.7 Lymphocytes # 2.5 Monocytes # 0.4 Eosinophils # 0.2 Basophils # 0.0 Nucleated Red Blood Cells # 0.0 Sodium Level 138 Potassium Level 3.5 Chloride Level 105 Carbon Dioxide Level 29 Anion Gap 4 L Blood Urea Nitrogen 9 Creatinine 0.49 Est Glomerular Filtrat Rate mL/min > 60 Glucose Level 100 Calcium Level 8.1 L Phosphorus Level 3.7 Magnesium Level 1.8 Urine Opiates Screen Positive Urine Barbiturates Negative Urine Amphetamines Screen Negative Urine Benzodiazepines Screen Negative Urine Cocaine Screen Negative Urine Cannabinoids Negative Subjective 24 Hr Interval Summary Free Text/Dictation States she still has abd pain 8 out of 10. Exam/Review of Systems Exam Vitals Vital Signs Date Temp Pulse Resp B/P (MAP) Pulse Ox O2 O2 Flow FiO2 Time Delivery Rate 07/29/18 Nasal 2.0 08:15 Cannula 07/29/18 98.1 82 19 112/58 99 07:58 (76) Intake and Output 07/28/18 07/28/18 07/29/18 1515:00 23:00 07:00 IntakeIntake Total 1000 ml 1000 ml 1200 ml BalanceBalance 1000 ml 1000 ml 1200 ml Exam Constitutional: alert, oriented Psych: nl mood/affect Respiratory: clear to auscultation, normal air movement Cardiovascular: regular rate and rhythm Gastrointestinal: soft, tender Musculoskeletal: No swelling Neurological: CAGE CASHIER II-XII intact, nl mental status, nl speech Skin: nl turgor Results Results 24hrs Laboratory Tests Test 07/29/18 04:34 07/29/18 05:25 White Blood Count 6.8 # Red Blood Count 3.29 L Hemoglobin 9.0 L Hematocrit 28.8 L Mean Corpuscular Volume 87.5 Mean Corpuscular Hemoglobin 27.4 L Mean Corpuscular Hemoglobin Concent 31.3 L Red Cell Distribution Width 14.3 Platelet Count 154 # Mean Platelet Volume 10.1 Immature Granulocytes % 0.300 Neutrophils % 54.6 Lymphocytes % 36.8 Monocytes % 5.3 Eosinophils % 2.9 Basophils % 0.1 Nucleated Red Blood Cells % 0.0 Immature Granulocytes # 0.020 Neutrophils # 3.7 Lymphocytes # 2.5 Monocytes # 0.4 Eosinophils # 0.2 Basophils # 0.0 Nucleated Red Blood Cells # 0.0 Sodium Level 138 Potassium Level 3.5 Chloride Level 105 Carbon Dioxide Level 29 Anion Gap 4 L Blood Urea Nitrogen 9 Creatinine 0.49 Est Glomerular Filtrat Rate mL/min > 60 Glucose Level 100 Calcium Level 8.1 L Phosphorus Level 3.7 Magnesium Level 1.8 Urine Opiates Screen Positive Urine Barbiturates Negative Urine Amphetamines Screen Negative Urine Benzodiazepines Screen Negative Urine Cocaine Screen Negative Urine Cannabinoids Negative Medications Medication Current Medications IV Flush (NS 3 ml) 3 ml PER PROTOCOL IV ; Start 07/27/18 at 21:30 Ondansetron HCl (Zofran Inj) 4 mg Q6H PRN IV NAUSEA/VOMITING Last administered on 07/29/18 11:16; Admin Dose 4 MG; Start 07/27/18 at 21:30 Acetaminophen (Tylenol Tab) 650 mg Q6H PRN PO .PAIN 1-3 OR TEMP Last administered on 07/29/18 02:21; Admin Dose 650 MG; Start 07/27/18 at 21:30 Hydromorphone HCl (Dilaudid) 2 mg Q4H PRN IV .SEVERE PAIN 7-10 Last administered on 07/29/18 13:29; Admin Dose 2 MG; Start 07/27/18 at 21:30 Lactated Ringer's 1,000 ml @ 200 mls/hr Q5H IV Last administered on 07/29/18 09:23; Admin Dose 200 MLS/HR; Start 07/27/18 at 21:30 Albuterol (Ventolin Hfa) 2 puff Q4H RESP THERAPY PRN INH dyspnea Last administered on 07/28/18 22:06; Admin Dose 2 PUFF; Start 07/28/18 at 13:30 Heparin Sodium (Porcine) (Heparin (5000 Units/1ml)) 5,000 unit BID SC Last administered on 07/29/18 09:22; Admin Dose 5,000 UNIT; Start 07/28/18 at 21:00 Famotidine (Pepcid Iv) 20 mg Q12 IV Last administered on 07/29/18 09:23; Admin Dose 20 MG; Start 07/28/18 at 21:00 Diphenhydramine HCl (Benadryl) 25 mg Q4 PRN IV ITCHING; Start 07/28/18 at 23:00 AIXA AKHTRA NP Jul 29, 2018 15:06
[2018-07-29] MEDS: ALBUTEROL HFA 8 GM INHALER INH PRN (17:53)
[2018-07-29 20:11] VITALS: BP 136/62; PULSE 85; RESP 17
[2018-07-29] MEDS: DIPHENHYDRAMINE 50 MG INJ IV PRN (20:54)
[2018-07-30] MEDS: HYDROmorphONE 2 MG/ML SYG IV PRN ×5 (01:36→22:32)
[2018-07-30] MEDS: DIPHENHYDRAMINE 50 MG INJ IV PRN ×5 (01:42→22:32)
[2018-07-30] MEDS: ONDANSETRON 4 MG INJ IV PRN ×3 (01:42→20:43)
[2018-07-30 02:15] VITALS: BP 108/53; PULSE 82; RESP 19
[2018-07-30] MEDS: LACTATED RINGER'S 1,000 ML IV SCH ×4 (04:44→20:53)
[2018-07-30] MEDS: ACETAMINOPHEN 500 MG TAB PO PRN ×2 (05:01→16:34)
--- NOTE | 2018-07-30 06:23 | PN ---
DATE: 07/29/2018 HISTORY OF PRESENT ILLNESS: The patient was admitted with abdominal pain. She was found to have a p ancreatitis. She had been discharged recently from the hospital; however, because of the persistent pain, the patient was admitted to the hospital. The CAT scan of the abdomen done on 07/27/2018 shows evidence of worsening of the phlegmonous infiltration peripancreatic fat compatible with progression of acute pancreatitis. Multiple small fluid collections adjacent to the tail of the pancreas and do rsal aspect of the stomach consistent with chronic pancreatitis. Occluded splenic vein with isolated perigastric varices noted. PHYSICAL EXAMINATION: GENERAL: The patient is alert. VITAL SIGNS: Temperature 98.2, blood pressure 128/62. ABDOMEN: Examination unremarkable. LABORATORY WORKUP: WBC count 6800, hemoglobin 9.0. Bilirubin 0.4, AST 37, ALT 25. Amylase and lipa se were very high on . We will repeat the amylase and lipase. CLINICAL IMPRESSION: Pancreatitis, etiology unknown. Await IgG4 to exclude autoimmune pancreatitis. PLAN: Continue n.p.o. and repeat the amylase and lipase. Dictated By: MARGA HERRERA MD NC/NTS Conf#: [id number] DID#: [id number] CC: MICHELLE CONLEY MD;*EndCC*
[2018-07-30 07:25] VITALS: BP 121/62; PULSE 84; RESP 18
[2018-07-30] MEDS: FAMOTIDINE 20 MG INJ IV SCH ×2 (09:50→20:46)
[2018-07-30] MEDS: HEPARIN 5,000 UNIT/1 ML VIAL SC SCH ×2 (09:51→20:51)
[2018-07-30] MEDS: ALBUTEROL HFA 8 GM INHALER INH PRN ×2 (09:59→16:38)
[2018-07-30 13:29] VITALS: BP 119/60; PULSE 74; RESP 19
--- NOTE | 2018-07-30 19:27 | CONS ---
DATE OF ADMISSION: 07/27/2018 DATE OF CONSULTATION: HISTORY OF PRESENT ILLNESS: The patient was admitted to the hospital with abdominal pain, and she wa s found to have a pancreatitis, etiology for this is unclear. She had a cholecystectomy in the past. She had an ERCP done in the past which did not show any evidence of choledocholithiasis; however, a few weeks ago she was admitted here for pancreatitis and after pain subsided, she was discharged; ho wever, she returned to the hospital again on 07/28/2018. At that time, her amylase was 1989. Lipase was 17,000, but now yesterday, the amylase is 179, lipase is 283. The potassium is 3.7. WBC count 5400, hemoglobin is 8.5. CLINICAL IMPRESSION: The patient seems to have a resolving pancreatitis. Etiology of pancreatitis i s not very clear. Rule out autoimmune pancreatitis. PLAN: Wait for the IgG4. At this time, it looks like she is stable. We could probably start her on clear liquids. Dictated By: MARGA BOWSER/CHIQUI Conf#: [id number] DID#: [id number] CC: MICHELLE CONLEY MD;*EndCC*
[2018-07-30 19:36] VITALS: BP 104/55; PULSE 61; RESP 18
[2018-07-31 01:33] VITALS: BP 102/51; PULSE 70; RESP 18
[2018-07-31] MEDS: ALBUTEROL HFA 8 GM INHALER INH PRN ×2 (02:35→07:25)
[2018-07-31] MEDS: HYDROmorphONE 2 MG/ML SYG IV PRN ×4 (02:57→21:36)
[2018-07-31] MEDS: DIPHENHYDRAMINE 50 MG INJ IV PRN ×4 (02:57→21:36)
[2018-07-31 08:09] VITALS: BP 104/51; PULSE 75; RESP 18
[2018-07-31] MEDS: FAMOTIDINE 20 MG INJ IV SCH ×2 (08:33→21:30)
[2018-07-31] MEDS: ONDANSETRON 4 MG INJ IV PRN ×2 (08:33→21:32)
[2018-07-31] MEDS: HEPARIN 5,000 UNIT/1 ML VIAL SC SCH ×2 (08:35→21:43)
--- NOTE | 2018-07-31 08:43 | PN ---
Date/Time of Note Date/Time of Note DATE: 07/31/18 TIME: 08:39 Assessment/Plan VTE Prophylaxis Risk score (from [facility])>0 risk: 2 SCD applied (from [facility]): Yes Pharmacological prophylaxis: heparin Lines/Catheters IV Catheter Type (from [facility]): Saline Lock Urinary Cath still in place: No Assessment/Plan Hospital Course SUBJECTIVE: Continues to have nausea and abdominal pain. OBJECTIVE: Physical Exam General: Obese, 48 year-old female lying in bed in no apparent distress. HEENT: Normocephalic, atraumatic. Eyes: Anicteric sclerae, conjunctivae clear. ENT: Nasal septum midline, oral mucosa is dry and. Neck supple, no JVD noticed. Cervical lymphadenopathy. Respiratory: Bilaterally clear breath sounds. No use of accessory muscles of respiration. No adventitious breath sounds. Cardiovascular: S1, S2 heard. Regular rate and rhythm. Abdomen: Soft and nondistended. Epigastric tenderness. Genitourinary: Deferred. Extremities: No cyanosis, no clubbing, no edema. Peripheral pulses palpable. Neurologic: Cranial nerves II through XII grossly intact. The patient is awake, alert, and oriented. Skin: Normal skin turgor. No skin rashes. Labs & Vitals per chart ASSESSMENT & PLAN 48-year-old female with prior history of pancreatitis status post gallbladder resection in October 2017 who presented to the emergency room with chief complaint of abdominal pain with CT evidence of pancreatitis and multiple small fluid collections adjacent to the tail of pancreas and dorsal aspect of stomach, who was admitted to inpatient setting for further treatment and evaluation. 1. Chronic pancreatitis. -Etiology unclear. -Status post cholecystectomy. -Fasting lipid panel negative for any significant hypertriglyceridemia. -The patient is a teetotaler. -Gastroenterology following. -Continue aggressive IV fluid hydration. -Continue pain control. -Patient has outpatient appointment for endoscopic ultrasound. 2. Multiple fluid collections in the pancreatic tail. -Possible pancreatic pseudocyst. -Gastroenterology following. 3. Dyslipidemia. -Hold statins at this time. -Fasting lipid panel satisfactory. 4. Asthma. -No evidence of any acute exacerbation. -Continue PRN DORI. 5. Obesity. -BMI more than 34 kg/m. -Advised weight reduction. 6. Diabetes mellitus. -Hemoglobin A1c of 6.8. -Monitor glycemic trends. -Low carbohydrate diet. 7. Normocytic anemia. Etiology unclear. Monitor H&H closely. Obtain iron panel and stool for OB. 8. Fluids, electrolytes, and nutrition. -Clear liquid. -Continue IV fluids. 9. DVT prophylaxis. -SQ heparin. 10. Plan. -Continue pain control. -Advance of diet as per gastroenterology. -Await clinical improvement before discharging the patient home. The patient was seen in collaboration with Dr. Wadsworth. Result Diagram: 07/31/18 0433 07/31/18 0433 Results 24hrs Laboratory Tests Test 07/31/18 04:33 White Blood Count 5.4 Red Blood Count 3.06 L Hemoglobin 8.5 L Hematocrit 26.8 L Mean Corpuscular Volume 87.6 Mean Corpuscular Hemoglobin 27.8 L Mean Corpuscular Hemoglobin Concent 31.7 L Red Cell Distribution Width 14.2 Platelet Count 178 Mean Platelet Volume 10.4 Immature Granulocytes % 0.200 Neutrophils % 47.9 Lymphocytes % 42.9 Monocytes % 5.5 Eosinophils % 3.3 Basophils % 0.2 Nucleated Red Blood Cells % 0.0 Immature Granulocytes # 0.010 Neutrophils # 2.6 Lymphocytes # 2.3 Monocytes # 0.3 Eosinophils # 0.2 Basophils # 0.0 Nucleated Red Blood Cells # 0.0 Sodium Level 139 Potassium Level 3.5 Chloride Level 102 Carbon Dioxide Level 32 H Anion Gap 5 Blood Urea Nitrogen 4 L Creatinine 0.53 Est Glomerular Filtrat Rate mL/min > 60 Glucose Level 96 Calcium Level 8.2 L Exam/Review of Systems Exam Vitals Vital Signs Date Temp Pulse Resp B/P (MAP) Pulse Ox O2 O2 Flow FiO2 Time Delivery Rate 07/31/18 98.0 75 18 104/51 98 Nasal 2.0 08:09 (68) Cannula Intake and Output 07/30/18 07/30/18 07/31/18 1515:00 23:00 07:00 IntakeIntake Total 600 ml 2580 ml 275 ml OutputOutput Total 300 ml 300 ml BalanceBalance 600 ml 2280 ml -25 ml Results Results 24hrs Laboratory Tests Test 07/31/18 04:33 White Blood Count 5.4 Red Blood Count 3.06 L Hemoglobin 8.5 L Hematocrit 26.8 L Mean Corpuscular Volume 87.6 Mean Corpuscular Hemoglobin 27.8 L Mean Corpuscular Hemoglobin Concent 31.7 L Red Cell Distribution Width 14.2 Platelet Count 178 Mean Platelet Volume 10.4 Immature Granulocytes % 0.200 Neutrophils % 47.9 Lymphocytes % 42.9 Monocytes % 5.5 Eosinophils % 3.3 Basophils % 0.2 Nucleated Red Blood Cells % 0.0 Immature Granulocytes # 0.010 Neutrophils # 2.6 Lymphocytes # 2.3 Monocytes # 0.3 Eosinophils # 0.2 Basophils # 0.0 Nucleated Red Blood Cells # 0.0 Sodium Level 139 Potassium Level 3.5 Chloride Level 102 Carbon Dioxide Level 32 H Anion Gap 5 Blood Urea Nitrogen 4 L Creatinine 0.53 Est Glomerular Filtrat Rate mL/min > 60 Glucose Level 96 Calcium Level 8.2 L Medications Medication Current Medications IV Flush (NS 3 ml) 3 ml PER PROTOCOL IV ; Start 07/27/18 at 21:30 Ondansetron HCl (Zofran Inj) 4 mg Q6H PRN IV NAUSEA/VOMITING Last administered on 07/31/18 08:33; Admin Dose 4 MG; Start 07/27/18 at 21:30 Hydromorphone HCl (Dilaudid) 2 mg Q4H PRN IV .SEVERE PAIN 7-10 Last administered on 07/31/18 08:32; Admin Dose 2 MG; Start 07/27/18 at 21:30 Albuterol (Ventolin Hfa) 2 puff Q4H RESP THERAPY PRN INH dyspnea Last administered on 07/31/18 07:25; Admin Dose 2 PUFF; Start 07/28/18 at 13:30 Heparin Sodium (Porcine) (Heparin (5000 Units/1ml)) 5,000 unit BID SC Last administered on 07/31/18 08:35; Admin Dose 5,000 UNIT; Start 07/28/18 at 21:00 Famotidine (Pepcid Iv) 20 mg Q12 IV Last administered on 07/31/18 08:33; Admin Dose 20 MG; Start 07/28/18 at 21:00 Diphenhydramine HCl (Benadryl) 25 mg Q4 PRN IV ITCHING Last administered on 07/31/18 08:33; Admin Dose 25 MG; Start 07/28/18 at 23:00 Acetaminophen (Tylenol Tab) 1,000 mg Q6H PRN PO MILD PAIN(1-3)OR ELEVATED TEMP Last administered on 07/30/18 16:34; Admin Dose 1,000 MG; Start 07/29/18 at 22:30 JAYSON ENGEL NP Jul 31, 2018 08:43
[2018-07-31] MEDS ORDERED: KETOROLAC 30 MG INJ IV PRN (09:30)
[2018-07-31] MEDS ORDERED: OXYCODONE/ACETAMINOPHEN (5/325) TAB PO PRN (09:30)
[2018-07-31] MEDS: SOD CHLORIDE 0.9% 1,000 ML IV SCH ×2 (09:38→17:56)
[2018-07-31] MEDS: ACETAMINOPHEN 500 MG TAB PO PRN (13:16)
[2018-07-31] MEDS: ALBUTEROL 0.083% (NEB) 2.5 MG/3 ML AMP HHN SCH ×2 (13:53→20:30)
[2018-07-31 14:53] VITALS: BP 118/58; PULSE 85; RESP 18
[2018-07-31 19:45] VITALS: BP 136/61; PULSE 77; RESP 20
[2018-08-01] MEDS: DIPHENHYDRAMINE 50 MG INJ IV PRN ×4 (01:44→20:14)
[2018-08-01] MEDS: HYDROmorphONE 2 MG/ML SYG IV PRN ×4 (01:44→20:15)
[2018-08-01] MEDS: SOD CHLORIDE 0.9% 1,000 ML IV SCH ×3 (01:50→20:21)
[2018-08-01 02:50] VITALS: BP 93/53; PULSE 57; RESP 20
[2018-08-01 07:39] VITALS: BP 111/58; PULSE 72; RESP 18
[2018-08-01] MEDS: ONDANSETRON 4 MG INJ IV PRN ×3 (07:44→20:14)
[2018-08-01] MEDS: FAMOTIDINE 20 MG INJ IV SCH (07:44)
[2018-08-01] MEDS: HEPARIN 5,000 UNIT/1 ML VIAL SC SCH ×2 (07:47→20:17)
[2018-08-01] MEDS: ALBUTEROL 0.083% (NEB) 2.5 MG/3 ML AMP HHN SCH ×3 (08:03→20:09)
--- NOTE | 2018-08-01 08:47 | PN ---
Date/Time of Note Date/Time of Note DATE: 08/01/18 TIME: 08:47 Assessment/Plan VTE Prophylaxis Risk score (from [facility])>0 risk: 2 SCD applied (from [facility]): Yes Pharmacological prophylaxis: heparin Lines/Catheters IV Catheter Type (from [facility]rs[facility]): Peripheral IV Urinary Cath still in place: No Assessment/Plan Hospital Course SUBJECTIVE: Continues to have nausea and abdominal pain. OBJECTIVE: Physical Exam General: Obese, 48 year-old female lying in bed in no apparent distress. HEENT: Normocephalic, atraumatic. Eyes: Anicteric sclerae, conjunctivae clear. ENT: Nasal septum midline, oral mucosa is dry and. Neck supple, no JVD noticed. Cervical lymphadenopathy. Respiratory: Bilaterally clear breath sounds. No use of accessory muscles of respiration. No adventitious breath sounds. Cardiovascular: S1, S2 heard. Regular rate and rhythm. Abdomen: Soft and nondistended. Epigastric tenderness. Genitourinary: Deferred. Extremities: No cyanosis, no clubbing, no edema. Peripheral pulses palpable. Neurologic: Cranial nerves II through XII grossly intact. The patient is awake, alert, and oriented. Skin: Normal skin turgor. No skin rashes. Labs & Vitals per chart ASSESSMENT & PLAN 48-year-old female with prior history of pancreatitis status post gallbladder resection in October 2017 who presented to the emergency room with chief complaint of abdominal pain with CT evidence of pancreatitis and multiple small fluid collections adjacent to the tail of pancreas and dorsal aspect of stomach, who was admitted to inpatient setting for further treatment and evaluation. 1. Chronic pancreatitis. -Etiology unclear. -Status post cholecystectomy. -Fasting lipid panel negative for any significant hypertriglyceridemia. -The patient is a teetotaler. -Gastroenterology following. -Continue aggressive IV fluid hydration. -Continue pain control. -Patient has outpatient appointment for endoscopic ultrasound. 2. Multiple fluid collections in the pancreatic tail. -Possible pancreatic pseudocyst. -Gastroenterology following. 3. Dyslipidemia. -Hold statins at this time. -Fasting lipid panel satisfactory. 4. Asthma. -No evidence of any acute exacerbation. -Continue PRN DORI. 5. Obesity. -BMI more than 36 kg/m. -Advised weight reduction. 6. Diabetes mellitus. -Hemoglobin A1c of 6.8. -Monitor glycemic trends. -Low carbohydrate diet. 7. Normocytic anemia. Etiology unclear. Monitor H&H closely. Iron panel showing no significant iron deficiency. Stool for OB x1 negative. 8. Fluids, electrolytes, and nutrition. -Clear liquid. -Continue IV fluids. 9. DVT prophylaxis. -SQ heparin. 10. Plan. -Continue pain control. -Advance of diet as per gastroenterology. -Await clinical improvement before discharging the patient home. The patient was seen in collaboration with Dr. Wadsworth. Result Diagram: 08/01/180 08/01/18 0450 Results 24hrs Laboratory Tests Test 08/01/18 04:50 White Blood Count 4.8 Red Blood Count 3.12 L Hemoglobin 8.5 L Hematocrit 27.5 L Mean Corpuscular Volume 88.1 Mean Corpuscular Hemoglobin 27.2 L Mean Corpuscular Hemoglobin Concent 30.9 L Red Cell Distribution Width 14.6 H Platelet Count 176 Mean Platelet Volume 10.3 Immature Granulocytes % 0.200 Neutrophils % 47.0 Lymphocytes % 42.5 Monocytes % 6.1 Eosinophils % 4.0 Basophils % 0.2 Nucleated Red Blood Cells % 0.0 Immature Granulocytes # 0.010 Neutrophils # 2.2 Lymphocytes # 2.0 Monocytes # 0.3 Eosinophils # 0.2 Basophils # 0.0 Nucleated Red Blood Cells # 0.0 Sodium Level 141 Potassium Level 3.4 L Chloride Level 104 Carbon Dioxide Level 32 H Anion Gap 5 Blood Urea Nitrogen 3 L Creatinine 0.57 Est Glomerular Filtrat Rate mL/min > 60 Glucose Level 99 Calcium Level 8.4 Phosphorus Level 4.7 Magnesium Level 2.0 Amylase Level 52 Lipase 129 Exam/Review of Systems Exam Vitals Vital Signs Date Temp Pulse Resp B/P (MAP) Pulse Ox O2 O2 Flow FiO2 Time Delivery Rate 08/01/18 64 18 96 21 08:03 08/01/18 99.0 111/58 Room Air 07:39 (75) 08/01/18 2.0 06:37 Intake and Output 07/31/18 07/31/18 08/01/18 1515:00 23:00 07:00 IntakeIntake Total 880 ml 1640 ml 1200 ml BalanceBalance 880 ml 1640 ml 1200 ml Results Results 24hrs Laboratory Tests Test 08/01/18 04:50 White Blood Count 4.8 Red Blood Count 3.12 L Hemoglobin 8.5 L Hematocrit 27.5 L Mean Corpuscular Volume 88.1 Mean Corpuscular Hemoglobin 27.2 L Mean Corpuscular Hemoglobin Concent 30.9 L Red Cell Distribution Width 14.6 H Platelet Count 176 Mean Platelet Volume 10.3 Immature Granulocytes % 0.200 Neutrophils % 47.0 Lymphocytes % 42.5 Monocytes % 6.1 Eosinophils % 4.0 Basophils % 0.2 Nucleated Red Blood Cells % 0.0 Immature Granulocytes # 0.010 Neutrophils # 2.2 Lymphocytes # 2.0 Monocytes # 0.3 Eosinophils # 0.2 Basophils # 0.0 Nucleated Red Blood Cells # 0.0 Sodium Level 141 Potassium Level 3.4 L Chloride Level 104 Carbon Dioxide Level 32 H Anion Gap 5 Blood Urea Nitrogen 3 L Creatinine 0.57 Est Glomerular Filtrat Rate mL/min > 60 Glucose Level 99 Calcium Level 8.4 Phosphorus Level 4.7 Magnesium Level 2.0 Amylase Level 52 Lipase 129 Medications Medication Current Medications IV Flush (NS 3 ml) 3 ml PER PROTOCOL IV ; Start 07/27/18 at 21:30 Ondansetron HCl (Zofran Inj) 4 mg Q6H PRN IV NAUSEA/VOMITING Last administered on 08/01/18 07:44; Admin Dose 4 MG; Start 07/27/18 at 21:30 Hydromorphone HCl (Dilaudid) 2 mg Q4H PRN IV .SEVERE PAIN 7-10 Last administered on 08/01/18 07:44; Admin Dose 2 MG; Start 07/27/18 at 21:30 Heparin Sodium (Porcine) (Heparin (5000 Units/1ml)) 5,000 unit BID SC Last administered on 08/01/18 07:47; Admin Dose 5,000 UNIT; Start 07/28/18 at 21:00 Famotidine (Pepcid Iv) 20 mg Q12 IV Last administered on 08/01/18 07:44; Admin Dose 20 MG; Start 07/28/18 at 21:00 Diphenhydramine HCl (Benadryl) 25 mg Q4 PRN IV ITCHING Last administered on 08/01/18 07:44; Admin Dose 25 MG; Start 07/28/18 at 23:00 Acetaminophen (Tylenol Tab) 1,000 mg Q6H PRN PO MILD PAIN(1-3)OR ELEVATED TEMP Last administered on 07/31/18 13:16; Admin Dose 1,000 MG; Start 07/29/18 at 22:30 Sodium Chloride 1,000 ml @ 100 mls/hr Q10H IV Last administered on 08/01/18at 01:50; Admin Dose 100 MLS/HR; Start 07/31/18 at 09:30 Ketorolac Tromethamine (Toradol) 30 mg Q6H PRN IV PAIN LEVEL 1-3 Last administered on 07/31/18at 13:10; Admin Dose 30 MG; Start 07/31/18 at 09:30; Stop 08/03/18 at 09:29 Oxycodone/ Acetaminophen (Percocet (5/ 325)) 1 tab Q4H PRN PO MODERATE PAIN LEVEL 4-6; Start 07/31/18 at 09:30 Albuterol (Proventil 0.083% (Neb)) 2.5 mg Q6HWA RESP THERAPY HHN Last administered on 08/01/18at 08:03; Admin Dose 2.5 MG; Start 07/31/18 at 14:00 JAYSON ENGEL NP Aug 01, 2018 08:47
[2018-08-01] MEDS ORDERED: POTASSIUM CHLORIDE 20 MEQ POWDER FOR ORAL SOLN PO ONE (09:00)
[2018-08-01 15:56] VITALS: BP 105/53; PULSE 73; RESP 18
[2018-08-01 19:52] VITALS: BP 111/56; PULSE 78; RESP 18
[2018-08-01] MEDS: FAMOTIDINE 20 MG TAB PO SCH (20:15)
[2018-08-02] MEDS: HYDROmorphONE 2 MG/ML SYG IV PRN ×3 (00:19→11:38)
[2018-08-02] MEDS: DIPHENHYDRAMINE 50 MG INJ IV PRN ×3 (00:19→12:38)
[2018-08-02 02:10] VITALS: BP 102/59; PULSE 63; RESP 20
[2018-08-02] MEDS: ONDANSETRON 4 MG INJ IV PRN ×3 (06:33→18:35)
[2018-08-02] MEDS: SOD CHLORIDE 0.9% 1,000 ML IV SCH ×2 (06:37→16:54)
[2018-08-02] MEDS: ALBUTEROL 0.083% (NEB) 2.5 MG/3 ML AMP HHN SCH ×3 (08:01→20:01)
[2018-08-02 08:31] VITALS: BP 112/60; PULSE 69; RESP 18
[2018-08-02] MEDS: FAMOTIDINE 20 MG TAB PO SCH ×2 (08:55→21:14)
[2018-08-02] MEDS: HEPARIN 5,000 UNIT/1 ML VIAL SC SCH ×2 (08:57→21:20)
[2018-08-02 14:37] VITALS: BP 112/58; PULSE 76; RESP 18
--- NOTE | 2018-08-02 18:06 | PN ---
Date/Time of Note Date/Time of Note DATE: 08/02/18 TIME: 18:04 Assessment/Plan VTE Prophylaxis Risk score (from Ns)>0 risk: 1 SCD applied (from Ns): No SCD contraindicated: low risk/ambulating Pharmacological prophylaxis: LMWH Lines/Catheters IV Catheter Type (from Nrs): Peripheral IV Urinary Cath still in place: No Assessment/Plan Hospital Course A/P 1. Ac/ chr pancreatitis, stable, check IgG. Needs EUS 2. Asthma 3. Adjustment Dz 4. Anemia S: events noted O: vss PE no pallor/ icterus reg s1s2 no mrg ctab bs +; nd nt; no mrg no edema Result Diagram: 08/02/186 08/02/186 Results 24hrs Laboratory Tests Test 08/02/18 04:35 08/02/18 04:36 Amylase Level 66 Lipase 139 White Blood Count 4.7 L Red Blood Count 3.17 L Hemoglobin 8.8 L Hematocrit 27.8 L Mean Corpuscular Volume 87.7 Mean Corpuscular Hemoglobin 27.8 L Mean Corpuscular Hemoglobin Concent 31.7 L Red Cell Distribution Width 14.7 H Platelet Count 192 Mean Platelet Volume 10.2 Immature Granulocytes % 0.200 Neutrophils % 45.0 Lymphocytes % 44.5 Monocytes % 5.9 Eosinophils % 4.0 Basophils % 0.4 Nucleated Red Blood Cells % 0.0 Immature Granulocytes # 0.010 Neutrophils # 2.1 Lymphocytes # 2.1 Monocytes # 0.3 Eosinophils # 0.2 Basophils # 0.0 Nucleated Red Blood Cells # 0.0 Sodium Level 142 Potassium Level 3.7 Chloride Level 107 Carbon Dioxide Level 29 Anion Gap 6 Blood Urea Nitrogen 4 L Creatinine 0.50 Est Glomerular Filtrat Rate mL/min > 60 Glucose Level 113 Calcium Level 8.6 Phosphorus Level 4.5 Magnesium Level 2.1 Exam/Review of Systems Exam Vitals Vital Signs Date Temp Pulse Resp B/P (MAP) Pulse Ox O2 O2 Flow FiO2 Time Delivery Rate 08/02/18 98.7 76 18 112/58 96 14:37 (76) 08/02/18 Nasal 1.0 13:16 Cannula 08/01/18 21 08:03 Intake and Output 08/01/18 08/01/18 08/02/18 1515:00 23:00 07:00 IntakeIntake Total 1000 ml 1200 ml 1000 ml BalanceBalance 1000 ml 1200 ml 1000 ml Results Results 24hrs Laboratory Tests Test 08/02/18 04:35 08/02/18 04:36 Amylase Level 66 Lipase 139 White Blood Count 4.7 L Red Blood Count 3.17 L Hemoglobin 8.8 L Hematocrit 27.8 L Mean Corpuscular Volume 87.7 Mean Corpuscular Hemoglobin 27.8 L Mean Corpuscular Hemoglobin Concent 31.7 L Red Cell Distribution Width 14.7 H Platelet Count 192 Mean Platelet Volume 10.2 Immature Granulocytes % 0.200 Neutrophils % 45.0 Lymphocytes % 44.5 Monocytes % 5.9 Eosinophils % 4.0 Basophils % 0.4 Nucleated Red Blood Cells % 0.0 Immature Granulocytes # 0.010 Neutrophils # 2.1 Lymphocytes # 2.1 Monocytes # 0.3 Eosinophils # 0.2 Basophils # 0.0 Nucleated Red Blood Cells # 0.0 Sodium Level 142 Potassium Level 3.7 Chloride Level 107 Carbon Dioxide Level 29 Anion Gap 6 Blood Urea Nitrogen 4 L Creatinine 0.50 Est Glomerular Filtrat Rate mL/min > 60 Glucose Level 113 Calcium Level 8.6 Phosphorus Level 4.5 Magnesium Level 2.1 Medications Medication Current Medications IV Flush (NS 3 ml) 3 ml PER PROTOCOL IV Last administered on 08/01/18 20:15; Admin Dose 3 ML; Start 07/27/18 at 21:30 Ondansetron HCl (Zofran Inj) 4 mg Q6H PRN IV NAUSEA/VOMITING Last administered on 08/02/18 12:38; Admin Dose 4 MG; Start 07/27/18 at 21:30 Hydromorphone HCl (Dilaudid) 2 mg Q4H PRN IV .SEVERE PAIN 7-10 Last administered on 08/02/18 11:38; Admin Dose 2 MG; Start 07/27/18 at 21:30 Heparin Sodium (Porcine) (Heparin (5000 Units/1ml)) 5,000 unit BID SC Last administered on 08/02/18 08:57; Admin Dose 5,000 UNIT; Start 07/28/18 at 21:00 Diphenhydramine HCl (Benadryl) 25 mg Q4 PRN IV ITCHING Last administered on 08/02/18 12:38; Admin Dose 25 MG; Start 07/28/18 at 23:00 Acetaminophen (Tylenol Tab) 1,000 mg Q6H PRN PO MILD PAIN(1-3)OR ELEVATED TEMP Last administered on 07/31/18 13:16; Admin Dose 1,000 MG; Start 07/29/18 at 22:30 Sodium Chloride 1,000 ml @ 100 mls/hr Q10H IV Last administered on 08/02/18 16:54; Admin Dose 100 MLS/HR; Start 07/31/18 at 09:30 Ketorolac Tromethamine (Toradol) 30 mg Q6H PRN IV PAIN LEVEL 1-3 Last administered on 07/31/18 13:10; Admin Dose 30 MG; Start 07/31/18 at 09:30; Stop 08/03/18 at 09:29 Oxycodone/ Acetaminophen (Percocet (5/ 325)) 1 tab Q4H PRN PO MODERATE PAIN LEVEL 4-6 Last administered on 08/02/18 16:38; Admin Dose 1 TAB; Start 07/31/18 at 09:30 Albuterol (Proventil 0.083% (Neb)) 2.5 mg Q6HWA RESP THERAPY HHN Last administered on 08/02/18 13:13; Admin Dose 2.5 MG; Start 07/31/18 at 14:00 Famotidine (Pepcid) 20 mg Q12 PO Last administered on 08/02/18 08:55; Admin Dose 20 MG; Start 08/01/18 at 21:00 SONI NASSAR MD Aug 02, 2018 18:06
[2018-08-02 19:40] VITALS: BP 141/75; PULSE 76; RESP 18
[2018-08-03 02:08] VITALS: BP 115/64; PULSE 71; RESP 18
[2018-08-03] MEDS: HYDROmorphONE 2 MG/ML SYG IV PRN ×2 (02:09→09:54)
[2018-08-03] MEDS: DIPHENHYDRAMINE 50 MG INJ IV PRN ×2 (02:12→10:05)
[2018-08-03] MEDS: SOD CHLORIDE 0.9% 1,000 ML IV SCH (04:17)
[2018-08-03] MEDS: ALBUTEROL 0.083% (NEB) 2.5 MG/3 ML AMP HHN SCH ×2 (07:45→13:01)
[2018-08-03 08:00] VITALS: BP 112/53; PULSE 75; RESP 18
[2018-08-03] MEDS: FAMOTIDINE 20 MG TAB PO SCH (09:54)
[2018-08-03] MEDS: HEPARIN 5,000 UNIT/1 ML VIAL SC SCH (09:58)
[2018-08-03] MEDS: ONDANSETRON 4 MG INJ IV PRN (10:00)
--- NOTE | 2018-08-03 12:33 | DS ---
Date/Time of Note Date/Time of Note DATE: 08/03/18 TIME: 12:24 Discharge Summary Admission/Discharge Info Admit Date/Time Jul 27, 2018 at 21:08 Discharge Date/Time Patient Condition: Stable Consults Dr Hendrickson Procedures CT A/P IMPRESSION: Worsening of phlegmonous infiltration peripancreatic fat compatible with progression of acute pancreatitis. Multiple small fluid collections adjacent to the tail of pancreas and dorsal aspect of stomach consistent with underlying chronic pancreatitis. 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 Enlarged fatty liver. Post cholecystectomy. No evidence of choledocholithiasis. Tiny left renal cyst. No further workup required Hx of Present Illness 48-year-old female admitted with recurrent abdominal pain. Hospital Course Hospitalist Coverage/hospital course Admitted with recurrent abdominal pain. Seen by GI. No Acute issues. Patient has been dealing with challenging/ recurrent pancreatitis. Was asked to see specialist for EUS, however referral may be a challenge. Patient states she took Creon initially. Now is having problem getting Creon authorized. Lipid panel done. IgG sent. Presently tolerating diet stable for for discharge with close follow-up. Last Visit; sp EGD: Gastritis and chronic superficial gastritis seen. On last visit discharge patient specifically requested narcotics and we were highly concerned of developing pain seeking behavior. May need outpatient behavioral health assistance. Ca 19-9 ~50. No stones no alcohol. A/P 1. Ac/ chr pancreatitis, stable, check IgG = 1213. Needs outpt EUS 2. Asthma 3. Adjustment Dz 4. Anemia 5. Status post lap vance 6. Chronic asthma 7. Chronic dyslipidemia 8. Chr pancreatitis; +/- pseudocyst? on creon Home Meds Active Scripts Pantoprazole* (Pantoprazole*) 40 Mg Tablet., 40 MG PO DAILY@06 for 30 Days, #30 Prov:SONI NASSAR MD 07/18/18 Reported Medications Albuterol Sulfate* (Ventolin HFA*) 18 Gm Hfa.aer.ad, 2 PUFF INHALATION Q4H, #1 INHALER 07/11/18 Loratadine* (Loratadine*) 10 Mg Tablet, 10 MG PO DAILY, #30 TAB 07/11/18 Simvastatin* (Zocor*) 20 Mg Tablet, 20 MG PO QHS, #30 TAB 07/11/18 Discontinued Scripts Polyethylene Glycol* (Miralax*) 17 Gm Powd.pack, 17 GM PO BID PRN for CONSTIPATION for 7 Days, #10 PACKET 2 Refills Prov:SONI NASSAR MD 07/18/18 Sennosides* (Senna Lax*) 8.6 Mg Tablet, 2 TAB PO BID for 10 Days, #20 TAB 2 Refills Prov:SONI NASSAR MD 07/18/18 Cohfkq-Bxmsuyhu-Vqumsaq* (Suma DR* 24,000) 24,000 L-76,000-120,000 Unit Capsu le, 2 CAP PO WITH MEALS for 14 Days, #60 2 Refills Prov:SONI NASSAR MD 07/18/18 [Acetaminophen Tab] 500 TAB No Conflict Check, 500 MG PO Q6H PRN for MILD PAIN(1-3)OR ELEVATED TEMP for 1 Day, TAB Prov:SONI NASSAR MD 07/18/18 Primary Care Provider Not On Staff Doctor Time spent on discharge: > 30 minutes Pending Labs Laboratory Tests Test 08/03/18 05:01 White Blood Count 5.4 10^3/ul (4.8-10.8) Red Blood Count 3.56 10^6/ul (4.20-5.40) Hemoglobin 9.7 g/dl (12.0-16.0) Hematocrit 31.5 % (37.0-47.0) Mean Corpuscular Volume 88.5 fl (82.0-101.0) Mean Corpuscular Hemoglobin 27.2 pg (29.0-33.0) Mean Corpuscular Hemoglobin Concent 30.8 g/dl (32.0-37.0) Red Cell Distribution Width 14.7 % (11.5-14.5) Platelet Count 236 10^3/UL (140-415) Mean Platelet Volume 10.0 fl (7.4-10.4) Immature Granulocytes % 0.200 % (0.001-0.429) Neutrophils % 53.0 % (39.0-77.0) Lymphocytes % 36.2 % (15.0-51.0) Monocytes % 6.3 % (0.0-11.0) Eosinophils % 3.9 % (0.0-7.0) Basophils % 0.4 % (0.0-2.0) Nucleated Red Blood Cells % 0.0 /100WBC (0.0-0.0) Immature Granulocytes # 0.010 10^3/ul (0.0-0.031) Neutrophils # 2.9 10^3/ul (1.6-7.5) Lymphocytes # 2.0 10^3/ul (0.8-2.9) Monocytes # 0.3 10^3/ul (0.3-0.9) Eosinophils # 0.2 10^3/ul (0.0-0.5) Basophils # 0.0 10^3/ul (0.0-0.1) Nucleated Red Blood Cells # 0.0 10^3/ul (0.0-0.0) Sodium Level 141 mmol/L (135-144) Potassium Level 4.4 mmol/L (3.5-5.1) Chloride Level 107 mmol/L (97-110) Carbon Dioxide Level 27 mmol/L (21-31) Anion Gap 7 (5-13) Blood Urea Nitrogen 7 mg/dl (7-20) Creatinine 0.54 mg/dl (0.44-1.00) Est Glomerular Filtrat Rate mL/min > 60 mL/min (>60) Glucose Level 112 mg/dl (70-220) Calcium Level 9.1 mg/dl (8.4-10.2) Phosphorus Level 4.7 mg/dl (2.5-4.9) Magnesium Level 2.1 mg/dl (1.7-2.5) Total Bilirubin 0.3 mg/dl (0.2-1.3) Direct Bilirubin 0.00 mg/dl (0.00-0.20) Indirect Bilirubin 0.3 mg/dl (0-1.1) Aspartate Amino Transf (AST/SGOT) 45 IU/L (15-46) Alanine Aminotransferase (ALT/SGPT) 36 IU/L (13-69) Alkaline Phosphatase 101 IU/L (42-121) Total Protein 7.3 g/dl (6.1-8.1) Albumin 3.7 g/dl (3.3-4.9) Globulin 3.60 g/dl (1.3-3.2) Albumin/Globulin Ratio 1.02 Amylase Level 59 U/L (11-123) Lipase 170 U/L (23-300) CHIKYARAPPA,SONI K MD Aug 03, 2018 12:33
--- NOTE | 2018-08-03 12:35 | PDOCDIS ---
Discharge Instructions CONDITION [id number] Patient Condition: [id number] Stable HOME CARE INSTRUCTIONS: [id number] Diet Instructions: [id number] Low Fat /Cholesterol ACTIVITY: [id number] Activity Restrictions: [id number] Slowly Increase Activity Avoid heavy lifting FOLLOW UP/APPOINTMENTS Follow-up Plan appt Dr Hendrickson & PCP 1wk; Dr Sergey Farah [phone]: 1-2wks SONI NASSAR MD Aug 03, 2018 12:35
[2018-08-03] MEDS ORDERED: LIPA1CAP6 PO (12:41)
[2018-08-03] MEDS ORDERED: ONDA4TAB13 PO (12:41)
[2018-08-03 16:04] VITALS: BP 105/55; PULSE 87; RESP 18
--- NOTE | 2018-08-05 07:44 | PN ---
DATE: 08/02/2018 SUBJECTIVE: The patient was admitted with abdominal pain secondary to pancreatitis. Now, the patien t's pain is much better. PHYSICAL EXAMINATION: GENERAL: She is alert. VITAL SIGNS: She is afebrile. Temperature 98.7, blood pressure is 112/58. CARDIOVASCULAR: Normal heart sounds. RESPIRATORY: Normal breath sounds. ABDOMEN: Soft, nontender. LABORATORY WORKUP: WBC count down to 4700, hemoglobin is 8.8. Serum amylase 66, lipase is 139. On 07/28/2018, liver panel was normal. CLINICAL IMPRESSION: The patient is presenting with history of pancreatitis. Etiology is not very c learly known. Serum IgG was ordered, which is pending. PLAN: At this time, the patient seems to be better. She is improving. Amylase and lipase is normal . 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 If she were to get t he next attack of pancreatitis, we would recommend that she can go to [facility] for more investigations inc luding endoscopic ultrasound and also gastroenterology second opinion. Dictated By: MARGA BOWSER/NTS Conf#: [id number] DID#: [id number] CC: SONI NASSAR MD;*EndCC*
== END 2018-08-03 15:55 | disposition home or self-care (01) | DRG 440 ==
LOC: E/R 16:40 → SUATTDRO 20:44 → MS1 21:08 → EDBEDREQSVC 22:58
PROVIDERS: ADMIT Internal Medicine; ATTEND Internal Medicine
DX: K85.90 Acute pancreatitis without necrosis or infection, unspecified (principal); E66.9 Obesity, unspecified; Z68.36 Body mass index [BMI] 36.0-36.9, adult; K86.1 Other chronic pancreatitis; K29.70 Gastritis, unspecified, without bleeding; E78.5 Hyperlipidemia, unspecified; R10.13 Epigastric pain
CPT/HCPCS: 74177; 80048; 80053; 80307; 82150; 82270; 82728; 82784; 82787; 83036; 83540; 83690; 83735; 84100; 84478; 84484; 85025; 85610; 85730; 93005; 94640; 94664; 96374; 96375; 96376; C9113; J1170; J1200; J1644; J1885; J2060; J2270; J2405; J2543; J7030; J7120; Q9967